=== PATIENT | female | born 1990 | race Caucasian/White ===

== ENCOUNTER 2016-08-09 20:39 | Emergency (ER) | payer OTHER ==
[2016-08-09 21:07] VITALS: BP 134/76; PULSE 88; TEMP 98.3; BMI 24.3
[2016-08-09 23:09] LABS: URINE APPEARANCE CLOUDY; URINE BILIRUBIN NEGATIVE (NEGATIVE); URINE COLOR YELLOW; URINE GLUCOSE (UA) NEGATIVE (NEGATIVE); URINE KETONE NEGATIVE (NEGATIVE); URINE NITRITE POSITIVE (NEGATIVE); URINE UROBILINOGEN NEGATIVE E.U./dl (0.2-1.0)
[2016-08-09 23:12] LABS: URINE BLOOD 2+ (NEGATIVE); URINE LEUK ESTERASE 3+ (NEGATIVE); URINE PROTEIN 2+ (NEGATIVE)
[2016-08-09 23:17] LABS: URINE BACTERIA RARE /hpf (NONE SEEN); URINE MUCUS RARE; URINE RBC 70 /hpf (0-3); URINE WBC 479 /hpf (3-5); YEAST MANY
--- NOTE | 2016-08-09 23:27 | PDOC ---
History of Present Illness - General History Source: Patient Exam Limitations: No Limitations - History of Present Illness Initial Comments: 08/10/16 01:44 The patient is a 26-year-old female with a significant past medical history of ovarian cysts and abnormal pap smears , who presents to the emergency department complaining of dysuria that began today. The patient reports left muscular flank pain. She denies frequency, urgency, or hematuria. The patient reports she took 3 tests one week ago, all which were positive. The patient denies any nausea, vomiting, diarrhea, or constipation. Allergies: NKDA Social History: No history of smoking, recreational drug use, or ETOH consumption <Karolyn Asif - Last Filed: 08/10/16 01:44> <Beverley Hassan - Last Filed: 08/10/16 04:36> - General Chief Complaint: Urinary Problem Stated Complaint: UTI/ABD PAIN Time Seen by Provider: 08/09/16 22:09 Past History <Karolyn Asif - Last Filed: 08/10/16 01:44> - Reproductive History (#): 0 - Psycho/Social/Smoking Cessation Hx Suicidal Ideation: No Smoking History: Never smoked Number of Cigarettes Smoked Daily: 0 Information on smoking cessation initiated: No Hx Alcohol Use: No Drug/Substance Use Hx: No <Beverley Hassan - Last Filed: 08/10/16 04:36> - Past Medical History Allergies/Adverse Reactions: Allergies Allergy/AdvReac Type Severity Reaction Status Date / Time No Known Allergies Allergy Verified 08/09/16 21:04 Home Medications: Ambulatory Orders Nitrofurantoin Monohyd/M-Cryst [Macrobid -] 100 mg PO BID #14 capsule 08/09/16 Review of Systems - Review of Systems Able to Perform ROS?: Yes Comments:: 08/10/16 01:44 GENERAL/CONSTITUTIONAL: No fever or chills. No weakness. HEAD, EYES, EARS, NOSE AND THROAT: No change in vision. No ear pain or discharge. No sore throat. CARDIOVASCULAR: No chest pain or shortness of breath. RESPIRATORY: No cough, wheezing, or hemoptysis. GASTROINTESTINAL: No nausea, vomiting, diarrhea or constipation. GENITOURINARY: +Dysuria. No frequency, or change in urination. MUSCULOSKELETAL: No joint or muscle swelling or pain. No neck or back pain. SKIN: No rash NEUROLOGIC: No headache, vertigo, loss of consciousness, or change in strength/ sensation. ENDOCRINE: No increased thirst. No abnormal weight change. HEMATOLOGIC/LYMPHATIC: No anemia, easy bleeding, or history of blood clots. ALLERGIC/IMMUNOLOGIC: No hives or skin allergy. <Karolyn Asif - Last Filed: 08/10/16 01:44> *Physical Exam - Vital Signs Last Vital Signs Temp Pulse Resp BP Pulse Ox 98.3 F 88 12 134/76 100 08/09/16 21:05 08/09/16 21:05 08/09/16 21:05 08/09/16 21:05 08/09/16 21:05 - Physical Exam Comments: 08/10/16 01:44 GENERAL: The patient is awake, alert, and fully oriented, in no acute distress. HEAD: Normal with no signs of trauma. EYES: Pupils equal, round and reactive to light, extraoccular movements intact, sclera anicteric, conjunctiva clear with no pallor. ENT: Ears normal, nares patent, oropharynx clear without exudates. Moist mucous membranes. NECK: Normal range of motion, supple without lymphadenopathy, JVD, or masses. LUNGS: Breath sounds equal, clear to auscultation bilaterally. No wheeze/ crackles. HEART: Regular rate and rhythm, normal S1 and S2 without murmur or rub. ABDOMEN: Soft/nontender/nondistended. BS wnl. No guarding or rebound. No palpable masses. No hepatosplenomegaly. EXTREMITIES: Normal range of motion, no edema. No clubbing or cyanosis. No cords, erythema, or tenderness. NEUROLOGICAL: Cranial nerves II through XII grossly intact. Normal speech, normal gait. PSYCH: Normal mood, normal affect. SKIN: Warm, Dry, normal turgor, no rashes or lesions noted. <Karolyn Asif - Last Filed: 08/10/16 01:44> - Vital Signs Last Vital Signs Temp Pulse Resp BP Pulse Ox 98.3 F 88 12 134/76 100 08/09/16 21:05 08/09/16 21:05 08/09/16 21:05 08/09/16 21:05 08/09/16 21:05 <Beverley Hassan - Last Filed: 08/10/16 04:36> ED Treatment Course - ADDITIONAL ORDERS Additional order review: Laboratory Results 08/09/16 22:49 Urine Color Yellow Urine Appearance Cloudy Urine pH 7.0 Ur Specific [place] 1.019 Urine Protein 2+ H Urine Glucose (UA) Negative Urine Ketones Negative Urine Blood 2+ H Urine Nitrite Positive Urine Bilirubin Negative Urine Urobilinogen Negative Ur Leukocyte Esterase 3+ H Urine RBC 70 Urine WBC 479 Ur Epithelial Cells Rare Urine Bacteria Rare Urine Mucus Rare Urine Yeast Many Urine HCG, Qual Positive - Medications Given in the ED: ED Medications Discontinued Medications Generic Name Dose Route Start Last Admin Trade Name Freq PRN Reason Stop Dose Admin Nitrofurantoin Macrocrystals 100 mg 08/09/16 23:30 08/09/16 23:37 Macrodantin - PO 100 mg ONCE MARY Administration <Karolyn Asif - Last Filed: 08/10/16 01:44> - ADDITIONAL ORDERS Additional order review: Laboratory Results 08/09/16 22:49 Urine Color Yellow Urine Appearance Cloudy Urine pH 7.0 Ur Specific [place] 1.019 Urine Protein 2+ H Urine Glucose (UA) Negative Urine Ketones Negative Urine Blood 2+ H Urine Nitrite Positive Urine Bilirubin Negative Urine Urobilinogen Negative Ur Leukocyte Esterase 3+ H Urine RBC 70 Urine WBC 479 Ur Epithelial Cells Rare Urine Bacteria Rare Urine Mucus Rare Urine Yeast Many Urine HCG, Qual Positive <Beverley Hassan - Last Filed: 08/10/16 04:36> Medical Decision Making - Medical Decision Making 08/10/16 04:34 Pt comes with UTI that she states she sometimes gets and she is aware of wht it feels like. 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 Pt indeed has a UTI and she is Urine HCG positive. She will be treated with macrobid. Her exm is normal. No suprapubic pain , flank pain, (only paraspinal muscle pain) no nausea and no vomiting.. She is afebrile. 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 <Beverley Hassan - Last Filed: 08/10/16 04:36> *DC/Admit/Observation/Transfer - Attestations Scribe Attestion: 08/10/16 01:45 Documentation prepared by Karolyn Asif, acting as medical record administrator for Beverley Hassan MD. <Karolyn Asif - Last Filed: 08/10/16 01:44> - Discharge Dispostion Admit: No <Beverley Hassan - Last Filed: 08/10/16 04:36> Diagnosis at time of Disposition: UTI (urinary tract infection) in in first trimester - Discharge Dispostion Disposition: HOME Condition at time of disposition: Stable - Prescriptions Prescriptions: Nitrofurantoin Monohyd/M-Cryst [Macrobid -] 100 mg PO BID #14 capsule - Referrals Referrals: Flaco Wong [Primary Care Provider] - Avery Platt MD [Staff Physician] - - Patient Instructions Printed Discharge Instructions: DI for Urinary Tract Infection (UTI) Print Language: TRISTANIAN
[2016-08-09] MEDS ORDERED: NITROFURANTOIN MACROCRYSTAL 50 MG CAPSULE (FP) PO SCH (23:30)
[2016-08-09] MEDS ORDERED: NITROFURANTOIN MACROCRYSTAL 50 MG CAPSULE (FP) ONE (23:34)
== END 2016-08-10 00:02 | disposition home or self-care (01) ==
LOC: JERFT 20:39 → JER 20:39
DX: O23.41 Unspecified infection of urinary tract in pregnancy, first trimester (principal); Z3A.00 Weeks of gestation of pregnancy not specified
CPT/HCPCS: 81003; 81015; 84703; 87086; 87186; 99282-25

== ENCOUNTER 2016-12-16 11:22 | Emergency (ER) | payer OTHER ==
[2016-12-16 11:28] VITALS: TEMP 98; BMI 26.9
--- NOTE | 2016-12-16 12:16 | PDOC ---
History of Present Illness - General History Source: Patient Exam Limitations: No Limitations - History of Present Illness Initial Comments: 12/16/16 13:44 The patient is a 26 year old female, 24 weeks (on pills), with a significant past medical history of cysts, who presents to the ER with shortness of breath, heart palpitations, and chest tightness for one week. Patient states she also has had abdominal cramping for the last two days accompanied with vaginal spotting. Patient reports this is her first . She says she believes she has issues with her thyroid because her menarche was at the age of 19. She denies nausea, vomiting, diarrhea She denies caffeine use She denies lower extremity pain, calf tenderness, or edema PCP: Dr. Pacheco <Rachel Fierro - Last Filed: 12/16/16 13:44> - General History Source: Patient, Old Records Exam Limitations: No Limitations <Lamar Guadalupe - Last Filed: 12/16/16 15:06> - General Chief Complaint: Palpitations Stated Complaint: HEART PALPITATIONS, 24 WKS Time Seen by Provider: 12/16/16 12:16 Past History <Rachel Fierro - Last Filed: 12/16/16 13:44> - Past Medical History Other medical history: denies - Reproductive History (#): 0 - Psycho/Social/Smoking Cessation Hx Suicidal Ideation: No Smoking History: Never smoked Number of Cigarettes Smoked Daily: 0 Information on smoking cessation initiated: No Hx Alcohol Use: No Drug/Substance Use Hx: No Substance Use Type: None <Lamar Guadalupe - Last Filed: 12/16/16 15:06> - Past Medical History Allergies/Adverse Reactions: Allergies Allergy/AdvReac Type Severity Reaction Status Date / Time No Known Allergies Allergy Verified 12/16/16 11:27 Home Medications: Ambulatory Orders Cephalexin [Keflex] 500 mg PO BID #10 capsule 12/16/16 Vits #93/Iron Fum/FA [ Formula Tablet] 1 each PO DAILY Review of Systems - Review of Systems Able to Perform ROS?: Yes Comments:: 12/16/16 13:44 GENERAL/CONSTITUTIONAL: No fever or chills. No weakness. HEAD, EYES, EARS, NOSE AND THROAT: No change in vision. No ear pain or discharge. No sore throat. CARDIOVASCULAR: (+) shortness of breath (+) chest heaviness. No chest pain. RESPIRATORY: No cough, wheezing, or hemoptysis. GASTROINTESTINAL: (+) abdominal cramping. No nausea, vomiting, diarrhea or constipation. GENITOURINARY: No dysuria, frequency, or change in urination. VAGINAL: (+) vaginal spotting MUSCULOSKELETAL: No joint or muscle swelling or pain. No neck or back pain. SKIN: No rash NEUROLOGIC: No headache, vertigo, loss of consciousness, or change in strength/ sensation. ENDOCRINE: No increased thirst. No abnormal weight change. HEMATOLOGIC/LYMPHATIC: No anemia, easy bleeding, or history of blood clots. ALLERGIC/IMMUNOLOGIC: No hives or skin allergy. <[facility],Rachel - Last Filed: 12/16/16 13:44> *Physical Exam - Vital Signs Last Vital Signs Temp Pulse Resp BP Pulse Ox 98 F 101 H 18 130/73 100 12/16/16 11:26 12/16/16 11:26 12/16/16 11:26 12/16/16 11:26 12/16/16 11:26 - Physical Exam Comments: 12/16/16 13:46 GENERAL: Awake, alert, and fully oriented, in no acute distress HEAD: No signs of trauma EYES: PERRLA, EOMI, sclera anicteric, conjunctiva clear ENT: Auricles normal inspection, hearing grossly normal, nares patent, oropharynx clear without exudates. Moist mucosa NECK: Normal ROM, supple, no lymphadenopathy, JVD, or masses LUNGS: Breath sounds equal, clear to auscultation bilaterally. No wheezes, and no crackles HEART: Regular rate and rhythm, normal S1 and S2, no murmurs, rubs or gallops ABDOMEN: Gravid uterus. Soft, nontender, normoactive bowel sounds. No guarding , no rebound. No masses EXTREMITIES: No calf tenderness, no peripheral ededma. Normal range of motion, no edema. No clubbing or cyanosis. No cords, erythema, or tenderness NEUROLOGICAL: Cranial nerves II through XII grossly intact. Normal speech, normal gait SKIN: Warm, Dry, normal turgor, no rashes or lesions noted. <[facility],Rachel - Last Filed: 12/16/16 13:44> - Vital Signs Last Vital Signs Temp Pulse Resp BP Pulse Ox 98 F 101 H 18 130/73 100 12/16/16 11:26 12/16/16 11:26 12/16/16 11:26 12/16/16 11:26 12/16/16 11:26 <Lamar Guadalupe - Last Filed: 12/16/16 15:06> ED Treatment Course - LABORATORY CBC & Chemistry Diagram: 12/16/16 13:00 12/16/16 13:00 <Rachel Fierro - Last Filed: 12/16/16 13:44> - LABORATORY CBC & Chemistry Diagram: 12/16/16 13:00 12/16/16 13:00 <Lamar Guadalupe - Last Filed: 12/16/16 15:06> Medical Decision Making - Medical Decision Making 12/16/16 13:11 26-year-old 6 month female 1 para 0 presents to the emergency Department with complaints of intermittent palpitations for the past 3 days with an episode of chest pain yesterday; of note, the patient had vaginal spotting yesterday but has had no spotting since and denies abdominal pain. Focused bedside ultrasound reveals an IUP with positive heart rate of 160. DDx includes but is not limited to: thyoid disease, cardiac arrhythmia, electrolyte abnormality, dehydration, toxic/metabolic derangement. Plan: 1. Labs and urine 2. EKG 3. HOUSEKEEPING MANAGER discussion 4. Observe and reevaluate 12/16/16 15:03 The labs were reviewed and are noted in the EMR. The urine has positive leukoesterase and the white blood cell count is elevated to 18,000. The patient is afebrile and is nontoxic appearing. I've spoken to the patient's obstetrical officethe PA named Rissayen I have informed her of the lab results. The plan is to discharge the patient on Keflex 500 mg twice daily for her UTI. We will send a urine culture from the office. I have instructed the patient to go to her crystal lapper's office immediately following discharge from here. <Lamar Guadalupe - Last Filed: 12/16/16 15:06> *DC/Admit/Observation/Transfer - Attestations Scribe Attestion: 12/16/16 13:49 Documentation prepared by Rachel Fierro, acting as medical/surgery registered nurse for Lamar Guadalupe MD. <SriRachel - Last Filed: 12/16/16 13:44> - Discharge Dispostion Admit: No - Attestations Physician Attestion: 12/16/16 13:14 I, Dr. Lamar Guadalupe, attest that the scribes documentation that appears above has been prepared under my direction and personally reviewed by me in its entirety. I confirmed that the note above accurately reflects all work, treatment, procedures, and medical decision-making performed by me. <Lamar Guadalupe - Last Filed: 12/16/16 15:06> Diagnosis at time of Disposition: Palpitations, , incidental, UTI (urinary tract infection) - Discharge Dispostion Condition at time of disposition: Stable - Prescriptions Prescriptions: Cephalexin [Keflex] 500 mg PO BID #10 capsule - Referrals Referrals: Flaco Wong [Primary Care Provider] - - Patient Instructions Printed Discharge Instructions: DI for Urinary Tract Infection (UTI) Additional Instructions: You are being treated for a urinary tract infection with Keflextake 1 tablet twice daily for 5 days. Please go to your crystal lapper's office immediately following discharge from the ER today. Return to the ER if your symptoms persist , worsen, or new symptoms arise. - Post Discharge Activity Work/School Note: Back to Work
[2016-12-16 13:48] LABS: BASOPHIL 0.2 % (0-2.0); EOSINOPHIL 1.2 % (0-4.5); MCH 30.9 pg (25.7-33.7); MCHC 33.5 g/dl (32.0-36.0); MEAN CELL VOLUME 92.4 fl (80-96); MEAN PLT VOLUME 6.8 fl (7.5-11.1); NEUTROPHILS 82.6 % (42.8-82.8); PLATELET COUNT 313 K/MM3 (134-434); RDW 13.1 % (11.6-15.6); WHITE BLOOD COUNT 18.3 K/mm3 (4.0-10.0)
[2016-12-16 14:10] LABS: URINE APPEARANCE CLOUDY; URINE BILIRUBIN NEGATIVE (NEGATIVE); URINE BLOOD NEGATIVE (NEGATIVE); URINE COLOR YELLOW; URINE GLUCOSE (UA) 1+ (NEGATIVE); URINE KETONE NEGATIVE (NEGATIVE); URINE NITRITE NEGATIVE (NEGATIVE); URINE PROTEIN NEGATIVE (NEGATIVE); URINE UROBILINOGEN NEGATIVE E.U./dl (0.2-1.0)
[2016-12-16 14:12] LABS: ANION GAP 11 (8-16); CALCIUM 8.8 mg/dL (8.5-10.1); CO2 24 mmol/L (21-32); CREATININE 0.5 mg/dL (0.55-1.02); GLUCOSE,RANDOM 86 mg/dL (74-106); PHOSPHOROUS 3.9 mg/dL (2.5-4.9)
[2016-12-16 14:14] LABS: TROPONIN I < 0.02 ng/ml (0.00-0.05)
[2016-12-16 14:34] LABS: URINE LEUK ESTERASE 1+ (NEGATIVE)
[2016-12-16] MEDS ORDERED: CEPHALEXIN MONOHYDRATE 500 MG CAPSULE (UD) PO ONE (14:40)
[2016-12-16] MEDS ORDERED: NITROFURANTOIN MACROCRYSTAL 50 MG CAPSULE (FP) PO SCH (14:45)
[2016-12-16] MEDS ORDERED: CEPHALEXIN MONOHYDRATE 250 MG CAPSULE (FP) ONE (14:55)
[2016-12-16 14:56] LABS: URINE MUCUS FEW; URINE RBC 20 /hpf (0-3); URINE WBC 10 /hpf (3-5)
[2016-12-16 15:19] VITALS: BP 129/76; PULSE 90
--- NOTE | 2016-12-17 17:13 | EKG ---
Test Reason : Blood Pressure : / mmHG Vent. Rate : 097 BPM Atrial Rate : 097 BPM P-R Int : 144 ms QRS Dur : 068 ms QT Int : 348 ms P-R-T Axes : 037 030 020 degrees QTc Int : 441 ms NORMAL SINUS RHYTHM LOW VOLTAGE QRS BORDERLINE ECG NO PREVIOUS ECGS AVAILABLE Confirmed by DAYNE RYAN MD ([id number]) on 12/17/2016 5:13:42 PM Referred By: Confirmed By:DAYNE RYAN MD
== END 2016-12-16 15:19 | disposition home or self-care (01) ==
LOC: JER 11:22
DX: O23.42 Unspecified infection of urinary tract in pregnancy, second trimester (principal); O99.412 Diseases of the circulatory system complicating pregnancy, second trimester; I49.8 Other specified cardiac arrhythmias; R00.2 Palpitations; Z3A.24 24 weeks gestation of pregnancy
CPT/HCPCS: 36415; 80048; 81003; 81015; 82550; 83735; 84100; 84443; 84484; 84703; 85025; 93005; 93010; 99284-25

== ENCOUNTER 2017-04-08 17:51 | Inpatient (IN) | payer OTHER ==
--- NOTE | 2017-04-08 19:07 | PDOC ---
History of Present Illness - General Chief Complaint: Allergic Reaction Stated Complaint: 40 WKS /ALLERGIC REACTION Time Seen by Provider: 04/08/17 18:07 History Source: Patient Exam Limitations: No Limitations - History of Present Illness Initial Comments: 04/08/17 19:02 Administration was initially triaged to fast-track patient presents with a rash , macular pruritic rash consistent with PUPPP rash, rash initially started on abdominal stretch sutton and has now progressed to legs. Called Dr. Pacheco who patient states is her primary [employer] doctor on-call states that Dr. Pacheco does not have privileges at this facility would not accept our phone call. Spoke to Dr. Smith who said to send patient immediately to labor and delivery where she will be evaluated and labs will be drawn. Baby needs to be assessed, patient sent via wheelchair immediately to labor and delivery for assessment. Administration states that she does have movement, no vaginal discharge or bleeding. Did have a mucousy discharge while going to the bathroom 2 days ago. 04/08/17 19:07 04/08/17 19:08 Severity: Yes: moderate Location: reports: other (origin abdominal stretch sutton and generalized. ) Modifying Factors: improves with: scratching Associated Symptoms: reports: rash Past History - Past Medical History Allergies/Adverse Reactions: Allergies Allergy/AdvReac Type Severity Reaction Status Date / Time No Known Allergies Allergy Verified 04/08/17 17:55 Home Medications: Ambulatory Orders Vits #93/Iron Fum/FA [ Formula Tablet] 1 each PO DAILY Other medical history: DENIES - Reproductive History (#): 0 Para: 0 - Psycho/Social/Smoking Cessation Hx Suicidal Ideation: No Smoking History: Never smoked Number of Cigarettes Smoked Daily: 0 Information on smoking cessation initiated: No Hx Alcohol Use: No Drug/Substance Use Hx: No Substance Use Type: None Review of Systems - Review of Systems Constitutional: No: Symptoms Reported HEENTM: No: Symptoms Reported Respiratory: No: Symptoms reported Cardiac (ROS): No: Symptoms Reported ABD/GI: No: Symptoms Reported : No: Symptoms Reported, Discharge, Frequency, Flank Pain, Hematuria Integumentary: Yes: Rash Hematologic/Lymphatic: No: Symptoms Reported *Physical Exam - Vital Signs Last Vital Signs Temp Pulse Resp BP Pulse Ox 98.6 F 110 H 18 146/89 100 04/08/17 17:53 04/08/17 17:53 04/08/17 17:53 04/08/17 17:53 04/08/17 17:53 - Physical Exam General Appearance: Yes: Appropriately Dressed. No: Apparent Distress Respiratory/Chest: positive: Lungs Clear, Normal Breath Sounds Cardiovascular: positive: Regular Rhythm, Regular Rate Lymphatic: negative: Adenopathy Extremity: positive: Pedal Edema (bilateral lower extremity nonpitting pedal edema), Erythema Integumentary: positive: Erythema, Rash (macular rash originating on stretch sutton to abdomen, macular rash generalized with no bullae) Neurologic: positive: Alert, Normal Mood/Affect Medical Decision Making - Medical Decision Making 04/08/17 19:12 Administration was initially triaged to fast-track patient presents with a rash , macular pruritic rash consistent with PUPPP rash, rash initially started on abdominal stretch sutton and has now progressed to legs. Called Dr. Pacheco who patient states is her primary [employer] doctor on-call states that Dr. Pacheco does not have privileges at this facility would not accept our phone call. Spoke to Dr. Smith who said to send patient immediately to labor and delivery where she will be evaluated and labs will be drawn. Baby needs to be assessed, patient sent via wheelchair immediately to labor and delivery for assessment. Administration states that she does have movement, no vaginal discharge or bleeding. Did have a mucousy discharge while going to the bathroom 2 days ago. Report given to labor and delivery, Vivian Yeh RN. *DC/Admit/Observation/Transfer Diagnosis at time of Disposition: Pruritic urticarial papules and plaques of
[2017-04-08] MEDS ORDERED: diphenhydrAMINE HCL 25 MG CAPSULE (FP) PO ONE (20:13)
[2017-04-08 20:36] LABS: BASOPHIL 0.2 % (0-2.0); EOSINOPHIL 2.4 % (0-4.5); MCH 31.4 pg (25.7-33.7); MCHC 33.8 g/dl (32.0-36.0); MEAN CELL VOLUME 93.1 fl (80-96); MEAN PLT VOLUME 7.8 fl (7.5-11.1); NEUTROPHILS 75.2 % (42.8-82.8); PLATELET COUNT 287 K/MM3 (134-434); WHITE BLOOD COUNT 11.7 K/mm3 (4.0-10.0)
[2017-04-08 20:41] LABS: URINE APPEARANCE CLEAR; URINE BILIRUBIN NEGATIVE (NEGATIVE); URINE BLOOD NEGATIVE (NEGATIVE); URINE COLOR STRAW; URINE GLUCOSE (UA) 3+ (NEGATIVE); URINE KETONE NEGATIVE (NEGATIVE); URINE LEUK ESTERASE NEGATIVE (NEGATIVE); URINE NITRITE NEGATIVE (NEGATIVE); URINE PROTEIN NEGATIVE (NEGATIVE); URINE UROBILINOGEN NEGATIVE mg/dL (0.2-1.0)
[2017-04-08 21:05] LABS: ALK PHOS 193 U/L (45-117); ANION GAP 10 (8-16); BILIRUBIN,TOTAL 0.2 mg/dL (0.2-1.0); CALCIUM 8.9 mg/dL (8.5-10.1); CO2 24 mmol/L (21-32); CREATININE 0.6 mg/dL (0.55-1.02); GLUCOSE,RANDOM 101 mg/dL (74-106); SGOT/AST 19 U/L (15-37); SGPT/ALT 24 U/L (12-78); SGPT/ALT 25 U/L (12-78); TOT PROT 6.3 g/dl (6.4-8.2)
[2017-04-08 21:06] LABS: ANION GAP 9 (8-16); BILIRUBIN,TOTAL 0.4 mg/dL (0.2-1.0); CO2 23 mmol/L (21-32); CREATININE 0.6 mg/dL (0.55-1.02); GLUCOSE,RANDOM 104 mg/dL (74-106); SGPT/ALT 24 U/L (12-78); TOT PROT 6.3 g/dl (6.4-8.2); URIC ACID 5.8 mg/dL (2.6-7.2)
[2017-04-08 21:11] LABS: ALK PHOS 188 U/L (45-117); SGOT/AST 18 U/L (15-37); SGOT/AST 19 U/L (15-37)
[2017-04-08] MEDS ORDERED: DEXTROSE 5%-LACTATED RINGERS 500 ML IV ONE ×2 (21:20→22:20)
[2017-04-08] MEDS: CALAMINE 8% TOPICAL LOTION 177 ML BOTTLE TP SCH (22:00)
[2017-04-08 23:17] VITALS: BMI 34.3
[2017-04-09 00:08] LABS: INR 1.03 (0.82-1.09); PROTHROMBIN TIME (PATIENT) 11.3 SEC (9.98-11.88)
[2017-04-09 00:10] LABS: ACTIVATED PTT 20.2 SECONDS (26.9-34.4)
[2017-04-09] MEDS: ELECTROLYTE-148 SOLN 1,000 ML IV SCH ×2 (00:30→05:20)
[2017-04-09 00:41] LABS: HIV 1 & 2 AB NEGATIVE; HIV 1 AGp24 NEGATIVE
[2017-04-09] MEDS ORDERED: FENTANYL/BUPIVACAINE/NS/PF - PCEA - 50 ML DISP.SYRIN EP SCH (02:30)
--- NOTE | 2017-04-09 02:39 | HP ---
Past Medical History - Primary Care Physician PCP:: Gabriella Smith - Admission Chief Complaint: 26 yrs 39.2 weeks iup, seen in L&D on 04/08/17 at 7.40 pm. c/o pruritis begnning on abdominal wall , radiating down to legs for few days , but felt worse before .pt was being worked up & monitored was having uterine irritablity, Iv fluid was begun, she had SROM at 22.40 hrs , & uc q 1-2 min continued in spite of Iv hydration , Fhr cat-1 ,150 bpm,at times low btb variablity.sono done 04/08/17 reprt 39.2 weeks, Vx, ant placenta, Bpp8/8, FAIZA 13.4 cm ,efw 8'2'. She was admitted & chart was requested History of Present Illness: care at Dr Pacheco's office chart reviewed :: intial labs on 08/13/16 : A Pos, Rubella immune, varicella immune, Hiv neg, rpr nr, Hbsag neg, Gc/ct neg Quantiferon neg, Cf neg, hepatic panel neg .GBS neg Nt screen neg. serial us growth were reviewed h/o hospitalization for Threatened PTL in january-2016, h/o steroids , 2 dose taken History Source: Patient, Medical Record Limitations to Obtaining History: No Limitations - Past Medical History CROWN PRESSER: No: CVA, Migraine, Seizure Cardiovascular: No: HTN Pulmonary: No: Asthma, COPD Gastrointestinal: No: Constipation, Gastritis Renal/: Yes: UTI (h/o uti in 1 st trimester) ...: 1 ...Para: 0 ...LMP: 07/07/16 ... Weeks Gestation by Dates: 39.2 ...EDC by Dates: 04/13/17 ...EDC by Sono: 04/13/17 Heme/Onc: No: Sickle Cell Trait Infectious Disease: No: AIDS, HIV, STD's, Tuberculosis Psych: No: Addictions, Bipolar, Depression - Past Surgical History Past Surgical History: Yes: None Hx Myomectomy: No Hx Transabdominal Cerclage: No - Smoking History Smoking history: Never smoked Have you smoked in the past 12 months: No Aproximately how many cigarettes per day: 0 - Alcohol/Substance Use Hx Alcohol Use: No History of Substance Use: reports: None Home Medications - Allergies Allergies/Adverse Reactions: Allergies Allergy/AdvReac Type Severity Reaction Status Date / Time No Known Allergies Allergy Verified 04/08/17 17:55 - Home Medications Home Medications: Ambulatory Orders Vits #93/Iron Fum/FA [ Formula Tablet] 1 each PO DAILY Physical Exam - Maternity Vital Signs: Vital Signs Temperature 99.4 F 04/09/17 01:00 Pulse Rate 123 H 04/09/17 01:00 Respiratory Rate 20 04/09/17 01:00 Blood Pressure 135/69 04/09/17 01:00 O2 Sat by Pulse Oximetry (%) 100 04/08/17 17:53 Selected Entries 04/08/17 04/08/17 20:00 22:40 Temperature 98.9 F 99.3 F Pulse Rate 103 H Pulse Rate [ 100 H Right Brachial] Blood Pressure 141/93 Blood Pressure 131/74 [Right Upper Arm] Weight 213 lb Constitutional: Yes: Well Nourished, Severe Distress Eyes: Yes: WNL HENT: Yes: WNL, Normocephalic Neck: Yes: WNL Cardiovascular: Yes: WNL, Regular Rate and Rhythm Lungs: Clear to auscultation Breast(s): Yes: WNL - Abdominal Exam/OB Fundal Height: 40 Number of Fetuses: Single Presentation: Vertex Contractions: Yes Regularity: Regular (2-3 min) Intensity: Mod/Strong Monitor Mode: External Heart Rate (range): 150-160 Heart Rate Location: Midline Category: II (loss of contact many times . sometimes BTB varablty very low 2-4 beats , sometimes it is 6-10 beats) Accelerations: Non-Uniform Decelerations: None (loss of contact many a times) - Vaginal Exam/OB Vaginal Bleediing: No Dilatation (cm): 5 Effacement (%): 100 Amniotic Membrane Status: Ruptured (at 22.40 hr on 04/08/17) Nitrazine Test: Positive Amniotic Fluid: Yes: Clear Presentation: Vertex/Position Station: -2 (-2/-1 , caput) - Physical Exam Musculoskeletal: Yes: WNL Extremities: Yes: WNL. No: Calf Tenderness Edema: Yes Edema: LLE: 1+, RLE: 1+ Integumentary: Yes: Erythema (on ant abd wall & inner ( medial aspect ) of lower extremities) Deep Tendon Reflex Grade: Normal +2 ...Motor Strength: WNL Psychiatric: Yes: WNL, Alert, Oriented - Labs Lab Results: Laboratory Tests 04/08/17 04/08/17 04/08/17 20:00 20:00 20:00 WBC Cancelled 11.7 Hgb Cancelled 13.9 MCH Cancelled 31.4 MCHC Cancelled 33.8 RDW Cancelled 14.0 Plt Count Cancelled 287retic 3.4 INR PTT (Actin FS) Chloride 109 H Carbon Dioxide 23 Anion Gap 9 Creatinine 0.6 Uric Acid 5.8 Total Bilirubin 0.4 GGT AST 18 D Urine Protein Negative Urine Glucose (UA) 3+ H D HIV 1&2 Antibody Screen HIV P24 Antigen 04/08/17 04/08/17 04/08/17 20:00 23:40 23:40 WBC Hgb MCH MCHC RDW Plt Count INR 1.03 PTT (Actin FS) 20.2 L Chloride Carbon Dioxide Anion Gap Creatinine Uric Acid Total Bilirubin GGT 18 AST Urine Protein Urine Glucose (UA) HIV 1&2 Antibody Screen Negative HIV P24 Antigen Negative Retic 3.4 Sodium 141, Potassium 4.0, Chlorides 109, CO2 23 , BUN 4,Creatinine 0.6, Glucose 104, SGOT/AST 18, SGPT/ALT 24, Bili total 0.4 , GGt-18 Problem List - Problems (1) with 39 completed weeks gestation Code(s): Z3A.39 - 39 WEEKS GESTATION OF (2) Pruritus of in third trimester Code(s): O99.713 - DISEASES OF THE SKIN, SUBCU COMP , THIRD TRIMESTER L29.9 - PRURITUS, UNSPECIFIED (3) SROM (spontaneous rupture of membranes) Code(s): HLO8173 - (4) Labor established Code(s): JYL8688 - (5) Obesity (BMI 30.0-34.9) Code(s): E66.9 - OBESITY, UNSPECIFIED Assessment/Plan 26 yrs , 39.2 weeks with priritis of , with srom, in sp labor onset & progress , GBSneg, HELLP work up neg Fhr cat-2, since progressing in labor will give trial of labor for vag delivery epidural labor analgesia at 2.40 am 04/09/17
--- NOTE | 2017-04-09 05:24 | PN ---
Progress Note, Labor Vaginal Exam #1 Labor Exam Date: 04/09/17 Labor Exam Time: 05:10 Heart Rate (range): 160-165 Dilatation: 7 Effacement (%): 100 Amniotic Membrane Status: Ruptured Presentation: Vertex/Position Station: 0 (caput) Remarks: fhr cat-2 ( btb low ) uc 2-3 min Selected Entries 04/09/17 04/09/17 04/09/17 03:55 04:00 05:00 Temperature 98.3 F 98.6 F Pulse Rate 117 H 119 117 Blood Pressure 127/74 134/76 101/67 6.00AM Temp 101.1 , Pulse 124/min , BP 108/52 FHR 170 bpm UC 2-3 min Plan IV Tylenol 1000 mg ivpb stat Iv Ancef 2 gm ivpb Vaginal Exam #2 Labor Exam Date: 04/09/17 Labor Exam Time: 07:00 Heart Rate (range): 160-170 Dilatation: 9 Effacement (%): 100 Amniotic Membrane Status: Ruptured Presentation: Vertex/Position Station: +1 (caput) Remarks: fhr cat-2 uc 1-2 min 7.)0 AM Temp 99 Vaginal Exam #3 Labor Exam Date: 04/09/17 Labor Exam Time: 08:10 Heart Rate (range): 170 Dilatation: 9 Effacement (%): 100 Amniotic Membrane Status: Ruptured Presentation: Vertex/Position Station: +1 Remarks: Temp 100 . I suspect Ac chorioamnionitis due to tachycardia , & maternal temp high fever 101 at 6.00 Am, now inspite of IVTylenol & IV Ancef 2gm given at 6.00am , she has Temp again at 8.10 AM 100. , tachycardia continues , no progress in labor beyond 9 cm hence I decided to stop trial of vaginal delivery , Deliver by Primary c/ section
[2017-04-09] MEDS: ACETAMINOPHEN 1000 MG/100 ML VIAL (NON FORMULARY) IVPB ONE ×2 (06:10→06:30)
[2017-04-09] MEDS ORDERED: ceFAZolin 2 GRAM PREMIX BAG IVPB ONE (06:30)
[2017-04-09] MEDS ORDERED: CITRIC ACID/SODIUM CITRATE 30 ML UNIT-DOSE CUP PO ONE (08:26)
[2017-04-09] MEDS ORDERED: METHYLERGONOVINE MALEATE 0.2 MG/1 ML AMP IM PRN (09:38)
[2017-04-09] MEDS ORDERED: ONDANSETRON 4 MG/2 ML VIAL IVPB PRN (09:42)
[2017-04-09] MEDS ORDERED: D5W-LR W/ 20 UNITS OXYTOCIN 1,000 ML IV SCH (09:45)
--- NOTE | 2017-04-09 10:05 | OP ---
Operative Note - Note: Operative Date: 04/09/17 Pre-Operative Diagnosis: 39.2 weeks, Ac Chorioamnionitis ( tachycardia , maternal fever), Non Reassuring FHR Operation: Primary LFTC/section Findings: 8.54 am .Baby boy, 5-7. Wt 9'3" , ROP, baby is transferred to NICU & intubated Both tubes normal , Both Ovaries large with multiple follicles amniotic fluid clear intraop IV gentamicin 80 mg after the delivery of fetus was given Dr Noemi Samano present in the OR IM Methergine was given due to atonicity of uterus Surgeon: Gabriella Smith Rotating Equipment Engineer: Rafael Butt Anesthesiologist/SLING OPERATOR: Wolf Byers Anesthesia: Epidural Specimens Removed: cord blood segment for cord gas. cord blood. placenta Estimated Blood Loss (mls): 1,200 Drains, Volume Out (mls): 400 (judit color ) Fluid Volume Replaced (mls): 1,200 Operative Report Dictated: Yes
--- NOTE | 2017-04-09 10:29 | PN ---
Delivery - Delivery Section: Primary, Low Flap Transverse (Iindication: 39.2 weeks, ac chorioamnionitis( Maternal fever, fetaltachycardia), Non reassuring FHR) Type of Anesthesia: Epidural EBL (cc): 1,200 (urine output 400 ml) Delivery, Single - Stages of Labor Date 1st Stage Initiatied: 04/08/17 Time 1st Stage Initiated: 22:00 Date of Delivery: 04/09/17 Time of Delivery: 08:54 Date Placenta Delivered: 04/09/17 Time Placenta Delivered: 08:55 Placenta: Yes: Manual Removal, Uterine Exploration - Condition of Infant Cutter And Presser/Medical Customer Service Representative Present: Yes Name: Noemi Samano Infant Gender: Male Position: Right, OP Total Hours ROM (Hrs/Mins): 10 hrs 15 min - 1 Minute Total Score: 5 5 Minutes Total Score: 7 (baby transferred to NICU, intubated ) - [place] Feeding Plan Initial Plan: Elected not to breastfeed exclusively throughout hospitalization Remarks - Remarks Remarks: 26 yrs , 39.2 weeks pnc at [facility]r [facility] office . presented with pruritis of HELLP work Up neg pt had SROM & went into spontaneous labor Intrapartum fever T max 101.1 rx iv Ancef 2 gm & IVtylenol was given Ac chorioamnionitis suspected . intraop cord blood gas was collected, but it was not picked up by respiratory for than > 1hr , hence it was not done since as per respiratory results won't be re;iable pt was taken for primary c/section intraop course was uneventful was transferred to [facility] in NICU
[2017-04-09] MEDS ORDERED: IBUPROFEN 800 MG/8 ML IJ IVPB PRN (11:14)
[2017-04-09] MEDS: GENTAMICIN 80 MG PREMIXED IVPB 100 ML IVPB SCH ×2 (11:14→17:17)
--- NOTE | 2017-04-09 12:20 | OP ---
DATE OF OPERATION: 04/09/2017 PREOPERATIVE DIAGNOSES: Thirty-nine point two weeks, acute chorioamnionitis, tachycardia, maternal fever, non-reassuring heart. OPERATION: Primary low-flap transverse section. SURGEON: Gabriella Smith MD PLANT CHANGER SURGEON: MATHEW Houston ANESTHESIOLOGIST: Wolf Byers MD ANESTHESIA: Epidural. FINDINGS: This is a 26-year-old, 1, para 0, 39.2 weeks, presented with pruritus with the , and she ruptured the membranes. While the workup was being done, the patient went into labor and she progressed with labor to 9 cm. As the heart rate was periodically alternatively low [id number] variability and then she developed tachycardia with a fever of 101 at 6 o'clock, IV Ancef and Tylenol was given, and her fever came down to 99. The heart rate was reaching 160 and back to 170 heart rate , Temp went back to 100 , therefore C- section was done. The patient remained dilated up to 9 cm. PROCEDURE: The patient was taken to the operating room table. Abdomen was shaved, prepped. Epidural Analgesia was converted into epidural anesthesia and a Farr catheter was already in place. The patient was in supine position. Abdomen was painted and draped in the usual manner. A Pfannenstiel incision was made in the skin and subcutaneous tissue. The anterior rectus sheath was incised transversely. Bleeding points were clamped and cauterized. Rectus muscles were from the rectus sheath. Parietal peritoneum was opened vertically. Lower flap of the peritoneum was incised transversely. Amniotic fluid was clear. The baby was delivered from ROP position at 8:54 a.m. was 5, 7, and the baby's weight was 9 pounds 3 ounces. The baby was transferred to the NICU and there the baby was intubated later on. The cord segment was collected for the cord blood gas and then cord blood was collected. Placenta was removed completely with the membranes and sent for pathology examination. The uterine cavity was cleaned properly. The uterine incision was closed in 2 layers. First layer was a continuous locking with a Biosyn 0 suture and the second layer was a continuous intermittent locking with a Biosyn 0 suture. Hemostasis was checked. The bladder peritoneum was closed with a Biosyn 0 suture. Both tubes were normal. Both ovaries were large with multiple follicles. Irrigation was done. .Uterine culture also was taken immediately after uterine incision . Then, closure of the abdomen was done. Sponge, instrument, and needle count was correct. Parietal peritoneum was closed with a Vicryl 0 suture. Muscles were approximated together with Vicryl 0 interrupted sutures and the anterior rectus sheath was closed with a Vicryl 0 continuous suture. Hemostasis was verified and subcutaneous tissue hemostasis was noted. The subcutaneous tissue was approximated with a Biosyn 0 suture. The skin was approximated with patricia. A pressure dressing was given. She had received 2 g of IV Ancef at 6 a.m. and she was given IV gentamicin 80 mg after the delivery of the baby. She received IM Methergine 0.2 mg intraoperatively, since the uterus was atonic. ESTIMATED BLOOD LOSS: 1200 mL. URINE OUTPUT: 400 mL intraoperatively and it was clear. The patient tolerated the procedure well and she was transferred to the recovery room in stable condition. Ann [id number] MTDD
[2017-04-09] MEDS: CEFAZOLIN 1 GM in DEXTROSE 5%-WATER - 50 ML IVPB SCH ×2 (13:29→21:13)
--- NOTE | 2017-04-09 14:54 | EKG ---
Test Reason : Blood Pressure : / mmHG Vent. Rate : 127 BPM Atrial Rate : 127 BPM P-R Int : 156 ms QRS Dur : 066 ms QT Int : 308 ms P-R-T Axes : 057 051 024 degrees QTc Int : 447 ms SINUS TACHYCARDIA OTHERWISE NORMAL ECG WHEN COMPARED WITH ECG OF 16-DEC-2016 11:33, NO SIGNIFICANT CHANGE WAS FOUND Confirmed by EUNICE ALBERT MD ([id number]) on 04/09/2017 2:54:00 PM Referred By: Maday FINN Confirmed By:EUNICE ALBERT MD
[2017-04-09] MEDS: CALAMINE 8% TOPICAL LOTION 177 ML BOTTLE TP SCH ×4 (16:22→21:00)
[2017-04-09] MEDS ORDERED: DEXTROSE 5%-WATER - 50 ML IVPB ONE (21:08)
[2017-04-09] MEDS ORDERED: ceFAZolin SODIUM 1 GM VIAL ONE (21:08)
[2017-04-10] MEDS: GENTAMICIN 80 MG PREMIXED IVPB 100 ML IVPB SCH ×3 (01:38→17:28)
[2017-04-10] MEDS: ACETAMINOPHEN 325 MG TABLET (FP) PO PRN ×3 (02:36→17:25)
[2017-04-10] MEDS: IBUPROFEN 600 MG TABLET (FP) PO PRN ×3 (02:36→17:25)
[2017-04-10] MEDS ORDERED: DEXTROSE 5%-WATER - 50 ML IVPB ONE ×3 (06:29→21:27)
[2017-04-10] MEDS ORDERED: ceFAZolin SODIUM 1 GM VIAL ONE ×3 (06:30→21:27)
[2017-04-10] MEDS: CEFAZOLIN 1 GM in DEXTROSE 5%-WATER - 50 ML IVPB SCH ×3 (06:32→21:39)
[2017-04-10] MEDS ORDERED: oxyCODONE HCL 5 MG TABLET PO PRN (08:00)
[2017-04-10 08:36] LABS: MCH 31.2 pg (25.7-33.7); MCHC 33.6 g/dl (32.0-36.0); MEAN CELL VOLUME 92.7 fl (80-96); MEAN PLT VOLUME 6.8 fl (7.5-11.1); PLATELET COUNT 247 K/MM3 (134-434); RDW 14.1 % (11.6-15.6); WHITE BLOOD COUNT 20.9 K/mm3 (4.0-10.0)
[2017-04-10 09:13] LABS: ALBUMIN 2.1 g/dl (3.4-5.0); ALK PHOS 123 U/L (45-117); ANION GAP 10 (8-16); BILIRUBIN,TOTAL 0.8 mg/dL (0.2-1.0); CALCIUM 8.3 mg/dL (8.5-10.1); CO2 23 mmol/L (21-32); CREATININE 0.5 mg/dL (0.55-1.02); GLUCOSE,RANDOM 87 mg/dL (74-106); SGOT/AST 18 U/L (15-37); SGPT/ALT 15 U/L (12-78); TOT PROT 4.6 g/dl (6.4-8.2)
[2017-04-10] MEDS: PRENATAL VITAMINS W/ FOLIC ACID TABLET (FP) PO SCH (09:14)
[2017-04-10 09:28] LABS: PLATELET ESTIMATE ADEQUATE (NORMAL); TOTAL CELLS COUNTED 100
[2017-04-10] MEDS ORDERED: BISACODYL 10 MG SUPP.RECT RC PRN (09:38)
--- NOTE | 2017-04-10 09:43 | PN ---
Post Progress Note - Subjective Subjective: 26 yo Para 1, status post primary , seen and evaluated. Doing well. Post Day: 1 Type of Delivery: Primary C/S Vital Signs: Vital Signs Temperature 99.2 F 04/10/17 08:36 Pulse Rate 107 H 04/10/17 08:36 Respiratory Rate 20 04/10/17 08:36 Blood Pressure 126/50 04/10/17 08:36 O2 Sat by Pulse Oximetry (%) 100 04/09/17 10:25 Breast Exam: Yes: Soft Uterus: Yes: Fundus Firm Incision: Yes: Dressing dry and intact Abdomen/GI: Yes: Abdomen soft Lochia: Yes: Rubra Lochia, amount: Small Extremities: Yes: Calves non-tender Perineum: Yes: Intact Activity: Ambulating - Labs Labs: CBC WBC 20.9 K/mm3 (4.0-10.0) H D 04/10/17 07:45 Corrected WBC (auto) Cancelled 04/08/17 20:00 RBC 3.50 M/mm3 (3.60-5.2) L D 04/10/17 07:45 Hgb 10.9 GM/dL (10.7-15.3) D 04/10/17 07:45 Hct 32.4 % (32.4-45.2) D 04/10/17 07:45 MCV 92.7 fl (80-96) 04/10/17 07:45 MCH 31.2 pg (25.7-33.7) 04/10/17 07:45 MCHC 33.6 g/dl (32.0-36.0) 04/10/17 07:45 RDW 14.1 % (11.6-15.6) 04/10/17 07:45 Plt Count 247 K/MM3 (134-434) 04/10/17 07:45 MPV 6.8 fl (7.5-11.1) L D 04/10/17 07:45 Total Counted 100 04/10/17 07:45 Neutrophils % Y 04/10/17 07:45 Neutrophils % (Manual) 77 % (42.8-82.8) 04/10/17 07:45 Band Neuts % (Manual) 2 % (0-10) 04/10/17 07:45 Lymphocytes % Y 04/10/17 07:45 Lymphocytes % (Manual) 10 % (8-40) 04/10/17 07:45 Monocytes % 8.2 % (3.8-10.2) 04/08/17 20:00 Monocytes % (Manual) 10 % (3.8-10.2) 04/10/17 07:45 Eosinophils % 2.4 % (0-4.5) D 04/08/17 20:00 Eosinophils % (Manual) 1 % (0-4.5) 04/10/17 07:45 Basophils % 0.2 % (0-2.0) 04/08/17 20:00 Platelet Estimate Adequate (NORMAL) 04/10/17 07:45 Platelet Comment No clumping noted 04/10/17 07:45 Platelet Comment Cancelled 04/08/17 20:00 RBC Morphology Cancelled 04/08/17 20:00 Retic Count 3.41 % (0.5-1.5) H 04/08/17 20:00 Haptoglobin 160 mg/dL (34-200) 04/08/17 20:00 Problem List - Problems (1) Status post primary low transverse section Code(s): Z98.891 - HISTORY OF UTERINE SCAR FROM PREVIOUS SURGERY Assessment/Plan Status post primary Ambulation Analgesia as needed Continue Post op care
[2017-04-10] MEDS: CALAMINE 8% TOPICAL LOTION 177 ML BOTTLE TP SCH ×4 (10:57→21:39)
--- NOTE | 2017-04-10 10:59 | PN ---
Progress Note (short form) - Note Progress Note: Anesthesiology Post-op POD#1 s/p C/S under spinal. Pt. feels well, denies h/a, able to walk, able to urinate without difficulty. VSS.
[2017-04-10] MEDS: SIMETHICONE 80 MG TAB.CHEW (FP) PO PRN ×2 (11:54→17:24)
[2017-04-10] MEDS: oxyCODONE HCL 5 MG TABLET PO PRN (17:24)
--- NOTE | 2017-04-10 18:39 | PN ---
Post Progress Note - Subjective Subjective: c/o pain scale 4-5 c/o pruritis still present,less than before delivery,more felt in the legs voided without difficulty after gomez was taken out Post Day: 1 Type of Delivery: Primary C/S Vital Signs: Vital Signs Temperature 98.2 F 04/10/17 17:46 Pulse Rate 110 H 04/10/17 17:46 Respiratory Rate 20 04/10/17 17:46 Blood Pressure 124/79 04/10/17 17:46 O2 Sat by Pulse Oximetry (%) 100 04/09/17 10:25 T Max 100 at 2.00AM Breast Exam: Yes: Other (pumping milk) Uterus: Yes: Fundus Firm, Fundus below umbilicus (tender) Incision: Yes: Dressing dry and intact. No: Redness, Oozing Abdomen/GI: Yes: Abdomen soft, Tender, Passing flatus, Tolerating PO (fluids n diet) Lochia, amount: Moderate (no odor) Extremities: Yes: Calves non-tender, Edema (erythema of lower extremities,) Perineum: Yes: Intact Activity: Ambulating - Labs Labs: CBC WBC 20.9 K/mm3 (4.0-10.0) H D 04/10/17 07:45 Corrected WBC (auto) Cancelled 04/08/17 20:00 RBC 3.50 M/mm3 (3.60-5.2) L D 04/10/17 07:45 Hgb 10.9 GM/dL (10.7-15.3) D 04/10/17 07:45 Hct 32.4 % (32.4-45.2) D 04/10/17 07:45 MCV 92.7 fl (80-96) 04/10/17 07:45 MCH 31.2 pg (25.7-33.7) 04/10/17 07:45 MCHC 33.6 g/dl (32.0-36.0) 04/10/17 07:45 RDW 14.1 % (11.6-15.6) 04/10/17 07:45 Plt Count 247 K/MM3 (134-434) 04/10/17 07:45 MPV 6.8 fl (7.5-11.1) L D 04/10/17 07:45 Total Counted 100 04/10/17 07:45 Neutrophils % Y 04/10/17 07:45 Neutrophils % (Manual) 77 % (42.8-82.8) 04/10/17 07:45 Band Neuts % (Manual) 2 % (0-10) 04/10/17 07:45 Lymphocytes % Y 04/10/17 07:45 Lymphocytes % (Manual) 10 % (8-40) 04/10/17 07:45 Monocytes % 8.2 % (3.8-10.2) 04/08/17 20:00 Monocytes % (Manual) 10 % (3.8-10.2) 04/10/17 07:45 Eosinophils % 2.4 % (0-4.5) D 04/08/17 20:00 Eosinophils % (Manual) 1 % (0-4.5) 04/10/17 07:45 Basophils % 0.2 % (0-2.0) 04/08/17 20:00 Platelet Estimate Adequate (NORMAL) 04/10/17 07:45 Platelet Comment No clumping noted 04/10/17 07:45 Platelet Comment Cancelled 04/08/17 20:00 RBC Morphology Cancelled 04/08/17 20:00 Retic Count 3.41 % (0.5-1.5) H 04/08/17 20:00 Haptoglobin 160 mg/dL (34-200) 04/08/17 20:00 Other Findings, Remarks: RS cta i/o noted. Problem List - Problems (1) with 39 completed weeks gestation Code(s): Z3A.39 - 39 WEEKS GESTATION OF (2) Pruritus of in third trimester Code(s): O99.713 - DISEASES OF THE SKIN, SUBCU COMP , THIRD TRIMESTER L29.9 - PRURITUS, UNSPECIFIED (3) SROM (spontaneous rupture of membranes) Code(s): PYN1518 - (4) Labor established Code(s): SQL3004 - (5) Obesity (BMI 30.0-34.9) Code(s): E66.9 - OBESITY, UNSPECIFIED Assessment/Plan stable encourage ambulation,deep breathing po fluids ct iv Ancef n iv Gentamicin until tomorrow pending cbc in AM
[2017-04-10] MEDS: FERROUS SO4 325 MG TABLET (FP) PO SCH (22:00)
[2017-04-11] MEDS: SIMETHICONE 80 MG TAB.CHEW (FP) PO PRN ×4 (01:37→18:03)
[2017-04-11] MEDS: ACETAMINOPHEN 325 MG TABLET (FP) PO PRN (01:37)
[2017-04-11] MEDS: GENTAMICIN 80 MG PREMIXED IVPB 100 ML IVPB SCH ×3 (01:42→18:03)
[2017-04-11] MEDS: SODIUM CHLORIDE 1,000 ML IV SCH (02:10)
--- NOTE | 2017-04-11 02:15 | CONSULT ---
Consultation: REQUESTING PROVIDER: Dr. Reyes CONSULT REQUEST: We have been asked to medically evaluate this patient for headache, tachycardia, and facial numbness. HISTORY OF PRESENT ILLNESS: 26 year old F POD 1 s/p delivery presenting with headache and facial numbness. Patient states she has been having constant headache x1 hour starting in her neck and radiating up to her frontal forehead. She describes the pain as tightness. Patient also complaining of shortness of breath and palpitations since yesterday. She underwent an EKG, which showed sinus tachycardia. Patient is post op day 1. Baby's scores were 5 & 7 and was transferred to NICU. Patient is currently being treated for chorioamionitis with cefaozlin and gentamicin. REVIEW OF SYSTEMS: CONSTITUTIONAL: Absent: fever, chills, diaphoresis, generalized weakness, malaise, loss of appetite, weight change HEENT: Absent: rhinorrhea, nasal congestion, throat pain, throat swelling, difficulty swallowing, mouth swelling, ear pain, eye pain, visual changes CARDIOVASCULAR: Absent: chest pain, syncope, palpitations, irregular heart rate, lightheadedness , peripheral edema RESPIRATORY: Absent: cough, shortness of breath, dyspnea with exertion, orthopnea, wheezing, stridor, hemoptysis GASTROINTESTINAL: Absent: abdominal pain, abdominal distension, nausea, vomiting, diarrhea, constipation, melena, hematochezia GENITOURINARY: Absent: dysuria, frequency, urgency, hesitancy, hematuria, flank pain, genital pain MUSCULOSKELETAL: Absent: myalgia, arthralgia, joint swelling, back pain, neck pain SKIN: Absent: rash, itching, pallor HEMATOLOGIC/IMMUNOLOGIC: Absent: easy bleeding, easy bruising, lymphadenopathy, frequent infections ENDOCRINE: Absent: unexplained weight gain, unexplained weight loss, heat intolerance, cold intolerance NEUROLOGIC: Absent: headache, focal weakness or paresthesias, dizziness, unsteady gait, seizure, mental status changes, bladder or bowel incontinence PSYCHIATRIC: Absent: anxiety, depression, suicidal or homicidal ideation, hallucinations. PHYSICAL EXAMINATION Vital Signs - 24 hr 04/10/17 04/10/17 04/10/17 03:00 04:00 05:00 Temperature Pulse Rate Respiratory 20 20 20 Rate Blood Pressure 04/10/17 04/10/17 04/10/17 06:00 07:00 08:00 Temperature 98.2 F Pulse Rate 118 H Respiratory 20 20 20 Rate Blood Pressure 117/68 04/10/17 04/10/17 04/10/17 08:36 14:00 17:46 Temperature 99.2 F 97.9 F 98.2 F Pulse Rate 107 H 114 H 110 H Respiratory 20 18 20 Rate Blood Pressure 126/50 112/61 124/79 04/10/17 20:45 Temperature 98.0 F Pulse Rate 114 H Respiratory 20 Rate Blood Pressure 117/62 GENERAL: Awake, alert, and fully oriented, in no acute distress. HEAD: Normal with no signs of trauma. EYES: Pupils equal, round and reactive to light, extraocular movements intact, sclera anicteric, conjunctiva clear. No lid lag. EARS, NOSE, THROAT: Ears normal, nares patent, oropharynx clear without exudates. Moist mucous membranes. NECK: Normal range of motion, supple without lymphadenopathy, JVD, or masses. LUNGS: Breath sounds equal, clear to auscultation bilaterally. No wheezes, and no crackles. No accessory muscle use. HEART: Tachycardic, Regular rhythm, normal S1 and S2 without murmur, rub or gallop. ABDOMEN: Soft, +tenderness, +Distention, normoactive bowel sounds, no guarding, no rebound, no masses. No hepatomegaly or splenomegaly. MUSCULOSKELETAL: Normal range of motion at all joints. No bony deformities or tenderness. UPPER EXTREMITIES: 2+ pulses, warm, well-perfused. No cyanosis. No clubbing. Cap refill <2 seconds. No peripheral edema. LOWER EXTREMITIES: 2+ pulses, warm, well-perfused. No calf tenderness. No peripheral edema. NEUROLOGICAL: Cranial nerves II-XII intact. 5/5 strength in UE, 4/5 strenght in LE 2/2 to pain from surgery, sensation intact b/l PSYCHIATRIC: Cooperative. Good eye contact. Appropriate mood and affect. Laboratory Results - last 24 hr 04/10/17 04/10/17 07:45 07:45 WBC 20.9 H D RBC 3.50 L D Hgb 10.9 D Hct 32.4 D MCV 92.7 MCH 31.2 MCHC 33.6 RDW 14.1 Plt Count 247 MPV 6.8 L D Total Counted 100 Neutrophils % Y Neutrophils % (Manual) 77 Band Neuts % (Manual) 2 Lymphocytes % Y Lymphocytes % (Manual) 10 Monocytes % (Manual) 10 Eosinophils % (Manual) 1 Platelet Estimate Adequate Platelet Comment No clumping noted Sodium 138 Potassium 3.5 Chloride 105 Carbon Dioxide 23 Anion Gap 10 BUN 4 L D Creatinine 0.5 L Creat Clearance w eGFR > 60 Random Glucose 87 Calcium 8.3 L Total Bilirubin 0.8 D AST 18 ALT 15 D Alkaline Phosphatase 123 H D Total Protein 4.6 L D Albumin 2.1 L D Active Medications Generic Name Dose Route Start Last Admin Trade Name Freq PRN Reason Stop Dose Admin Acetaminophen 650 mg 04/09/17 09:42 04/11/17 01:37 Tylenol - PO 650 mg Q4H PRN Administration FEVER OR PAIN Bisacodyl 10 mg 04/10/17 09:38 Dulcolax Suppository - RC PRN PRN CONSTIPATION Calamine 1 applic 04/08/17 22:00 04/10/17 21:39 Calamine 8% Topical Lotion - TP 1 applic QID MARY Administration Diphenhydramine HCl 25 mg 04/09/17 09:42 04/10/17 02:36 Benadryl Injection - IVPUSH 25 mg Q4H PRN Administration Pruritis Ferrous Sulfate 325 mg 04/10/17 22:00 04/10/17 22:00 Feosol - PO 325 mg BID MARY Administration Cefazolin Sodium 1 gm/ 50 mls @ 100 mls/hr 04/09/17 14:00 04/10/17 21:39 Dextrose IVPB 100 mls/hr Q8H MARY Administration Dextrose/Lactated Ringer's 1,000 mls @ 125 mls/hr 04/09/17 09:45 04/10/17 08:18 Pitocin 20 Units In D5-Lr - IV 125 mls/hr ASDIR MARY Administration Gentamicin Sulfate/Sodium Chloride 100 mls @ 100 mls/hr 04/09/17 10:00 01:42 Garamycin 80 Mg Premixed Ivpb - IVPB 100 mls/hr Q8H-IV MARY Administration Ibuprofen 600 mg 04/09/17 09:42 04/10/17 17:25 Motrin - PO 600 mg Q4H PRN Administration PAIN Methylergonovine Maleate 0.2 mg 04/09/17 09:38 04/09/17 21:32 Methergine Injection - IM 0.2 mg Q4H PRN Administration Excessive Bleeding (L&D) Oxycodone HCl 5 mg 04/10/17 08:00 04/10/17 17:24 Roxicodone - PO 5 mg Q4H PRN Administration PAIN LEVEL 1-5 Oxycodone HCl 10 mg 04/10/17 08:00 Roxicodone - PO Q4H PRN PAIN LEVEL 6-10 Multivit/Folic Acid/Iron 1 tab 04/10/17 10:00 04/10/17 09:14 Vitamins (Sjr) - PO 1 tab DAILY MARY Administration Simethicone 80 mg 04/09/17 09:38 04/11/17 01:37 Mylicon - PO 80 mg Q4H PRN Administration GAS ASSESSMENT/PLAN: 26 year old F POD 1 s/p presenting with headache, tachycardia, palpitations, and SOB #Dyspnea and Tachycardia likely 2/2 to pain vs anxiety -Satting 100 on RA -no tachypnea -Cxr -tylenol 650 mg po -EKG #Headache -Tylenol 650 mg po #Palpitations -Repeat EKG #Chorioamnionitis -Continue ancef and gentamicin Dispo: We will continue to follow the patient. Thank you for this consultative opportunity. Visit type - Emergency Visit Emergency Visit: Yes ED Registration Date: 04/08/17 Care time: The patient presented to the Emergency Department on the above date and was hospitalized for further evaluation of their emergent condition. - New Patient This patient is new to me today: Yes Date on this admission: 04/11/17 - Critical Care Critical Care patient: No
[2017-04-11] MEDS ORDERED: DEXTROSE 5%-WATER - 50 ML IVPB ONE ×3 (06:11→22:52)
[2017-04-11] MEDS ORDERED: ceFAZolin SODIUM 1 GM VIAL ONE ×3 (06:11→22:52)
[2017-04-11] MEDS: CEFAZOLIN 1 GM in DEXTROSE 5%-WATER - 50 ML IVPB SCH ×3 (06:31→23:06)
--- NOTE | 2017-04-11 06:36 | PN ---
Teaching Attending Note Name of Resident: Jeremiah Ko ATTENDING PHYSICIAN STATEMENT I saw and evaluated the patient. I reviewed the resident's note and discussed the case with the resident. I agree with the resident's findings and plan as documented. SUBJECTIVE: 26 year old POD # 1 after c section c/o posterior occipital headache and facial numbness,shortness of breath and palpitations since yesterday. Patient is currently being treated for chorioamionitis with cefaozlin and gentamicin. OBJECTIVE: Vital Signs Temperature 98.2 F 04/11/17 06:32 Pulse Rate 116 H 04/11/17 06:32 Respiratory Rate 20 04/11/17 06:32 Blood Pressure 129/79 04/11/17 06:32 O2 Sat by Pulse Oximetry (%) 100 04/09/17 10:25 NECK: Normal range of motion, supple without lymphadenopathy, JVD, or masses. LUNGS: Breath sounds equal, clear to auscultation bilaterally. No wheezes, and no crackles. No accessory muscle use. HEART: Tachycardic, Regular rhythm, normal S1 and S2 without murmur, rub or gallop. pedal edema 1 + CBC, BMP 04/10/17 07:45 04/10/17 07:45 ASSESSMENT AND PLAN: 1. Dyspnea - good o2 saturation , likely secondary to pain and splinting . Needs good pain control and incentive spirometry. will order CXR and follow 2. Headache , posterior occipital - likely tension , no neurological deficit . 3. 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
[2017-04-11] MEDS: oxyCODONE HCL 5 MG TABLET PO PRN ×3 (06:43→18:01)
[2017-04-11] MEDS: IBUPROFEN 600 MG TABLET (FP) PO PRN ×3 (06:44→18:02)
[2017-04-11 07:26] LABS: BASOPHIL 0.2 % (0-2.0); MCH 31.3 pg (25.7-33.7); MCHC 33.3 g/dl (32.0-36.0); MEAN CELL VOLUME 94.2 fl (80-96); NEUTROPHILS 79.5 % (42.8-82.8); PLATELET COUNT 280 K/MM3 (134-434); RDW 14.2 % (11.6-15.6)
--- NOTE | 2017-04-11 08:26 | PN ---
Progress Note (short form) - Note Progress Note: pod 2 had c/o of face numbness and tingling finger tips, seen by Hospitalist, feels fine now CBC, BMP 04/11/17 05:35 04/10/17 07:45 Last Vital Signs Temp Pulse Resp BP Pulse Ox 98.2 F 116 H 20 129/79 100 04/11/17 06:32 04/11/17 06:32 04/11/17 06:32 04/11/17 06:32 04/09/17 10:25 abdomen soft, no distension, no cva incision dry, clean no calf tenderness no excess vaginal bleeding impression pod 2 tachycardia, suspected chorio, cont iv antibiotic , observation, medical evaluation
[2017-04-11] MEDS: FERROUS SO4 325 MG TABLET (FP) PO SCH ×2 (10:24→23:07)
[2017-04-11] MEDS: PRENATAL VITAMINS W/ FOLIC ACID TABLET (FP) PO SCH (10:24)
[2017-04-11] MEDS: CALAMINE 8% TOPICAL LOTION 177 ML BOTTLE TP SCH ×4 (10:30→23:07)
--- NOTE | 2017-04-11 11:15 | PN ---
Post Progress Note - Subjective Subjective: c/o pain , scale 7/10 c/o gaseous discomfort , pain is moving , bm not done . no longer c/o occipital headache or palpitation or nubness of fingers \voiding without difficulty Type of Delivery: Primary C/S Vital Signs: Vital Signs Temperature 98.0 F 04/11/17 09:30 Pulse Rate 116 H 04/11/17 09:30 Respiratory Rate 20 04/11/17 09:30 Blood Pressure 124/81 04/11/17 09:30 O2 Sat by Pulse Oximetry (%) 98 04/11/17 09:30 Breast Exam: Yes: Soft, Other (attempting pumping ). No: Engorged Uterus: Yes: Fundus Firm, Fundus below umbilicus (tender ), Other Incision: Yes: Dressing dry and intact (to be changed ). No: Redness, Oozing Abdomen/GI: Yes: Abdomen soft, Tender (mainly in rt middle quadrant ,), Passing flatus, Tolerating PO (diet ). No: Abdominal Distention Lochia: Yes: Rubra Lochia, amount: Small (no odor) Activity: Ambulating - Labs Labs: CBC WBC 18.0 K/mm3 (4.0-10.0) H 04/11/17 05:35 Corrected WBC (auto) Cancelled 04/08/17 20:00 RBC 3.34 M/mm3 (3.60-5.2) L 04/11/17 05:35 Hgb 10.5 GM/dL (10.7-15.3) L 04/11/17 05:35 Hct 31.5 % (32.4-45.2) L 04/11/17 05:35 MCV 94.2 fl (80-96) 04/11/17 05:35 MCH 31.3 pg (25.7-33.7) 04/11/17 05:35 MCHC 33.3 g/dl (32.0-36.0) 04/11/17 05:35 RDW 14.2 % (11.6-15.6) 04/11/17 05:35 Plt Count 280 K/MM3 (134-434) 04/11/17 05:35 MPV 7.0 fl (7.5-11.1) L 04/11/17 05:35 Total Counted 100 04/10/17 07:45 Neutrophils % 79.5 % (42.8-82.8) 04/11/17 05:35 Neutrophils % (Manual) 77 % (42.8-82.8) 04/10/17 07:45 Band Neuts % (Manual) 2 % (0-10) 04/10/17 07:45 Lymphocytes % 11.3 % (8-40) 04/11/17 05:35 Lymphocytes % (Manual) 10 % (8-40) 04/10/17 07:45 Monocytes % 7.0 % (3.8-10.2) 04/11/17 05:35 Monocytes % (Manual) 10 % (3.8-10.2) 04/10/17 07:45 Eosinophils % 2.0 % (0-4.5) 04/11/17 05:35 Eosinophils % (Manual) 1 % (0-4.5) 04/10/17 07:45 Basophils % 0.2 % (0-2.0) 04/11/17 05:35 Platelet Estimate Adequate (NORMAL) 04/10/17 07:45 Platelet Comment No clumping noted 04/10/17 07:45 Platelet Comment Cancelled 04/08/17 20:00 RBC Morphology Cancelled 04/08/17 20:00 Retic Count 3.41 % (0.5-1.5) H 04/08/17 20:00 Haptoglobin 160 mg/dL (34-200) 04/08/17 20:00 Other Findings, Remarks: RS cta Problem List - Problems (1) with 39 completed weeks gestation Code(s): Z3A.39 - 39 WEEKS GESTATION OF (2) Pruritus of in third trimester Code(s): O99.713 - DISEASES OF THE SKIN, SUBCU COMP , THIRD TRIMESTER L29.9 - PRURITUS, UNSPECIFIED (3) SROM (spontaneous rupture of membranes) Code(s): VDS0284 - (4) Labor established Code(s): TAP6214 - (5) Obesity (BMI 30.0-34.9) Code(s): E66.9 - OBESITY, UNSPECIFIED (6) Non-reassuring electronic monitoring tracing Code(s): O76 - ABNLT IN HEART RATE AND RHYTHM COMP LABOR AND DELIVERY (7) Maternal pyrexia during labor, delivered, current hospitalization Code(s): O75.2 - PYREXIA DURING LABOR, NOT ELSEWHERE CLASSIFIED (8) Acute chorioamnionitis Code(s): O41.1290 - CHORIOAMNIONITIS, UNSP TRIMESTER, NOT APPLICABLE OR UNSP (9) delivery, delivered, current hospitalization Code(s): O82 - ENCOUNTER FOR DELIVERY WITHOUT INDICATION Assessment/Plan pt improving, wbc count is still high , though pt is afebrile , , will continue iv antibiotics Iv Ancef & IV Gentamicin. ducolax suppository today Encourage ambulation, po fluids & deep breathing change iv to saline lock
--- NOTE | 2017-04-11 18:27 | HOSP ---
Physical Examination Vital Signs: Vital Signs Temperature 97.6 F 04/11/17 17:53 Pulse Rate 105 H 04/11/17 17:53 Respiratory Rate 20 04/11/17 17:53 Blood Pressure 125/81 04/11/17 17:53 O2 Sat by Pulse Oximetry (%) 98 04/11/17 09:30 Findings/Remarks: Subjective: The patient was seen and examined at the bedside. She reports palpitations and feeling like her heart is racing on and off. She reports when she feels the palpitations her chest becomes very heavy. She reports that she cannot lay the bed flat because then she feels a heaviness on her chest and cannot breath. She states she has noticed b/l lower extremity edema after delivery. She denies any shortness of breath at this time or palpitations. She denies any calf tenderness. The patient reports a few months ago she went to a hospital in [place] because she felt she was in labor. At that time, they found her to be tachycardia. She reports she received two shots and was worked up by cardiology. She states she does not know the outcome of the workup. Physical Exam: General: NAD, A&Ox3 Lungs: CTA bilaterally Heart: Tachycardia, S1S2, no murmurs noted Abd: Distended. Fundus below umbilicus Ext: B/l trace to 1+ pitting edema. No erythema noted, no calf tenderness. 2+ DP /PT bilaterally Neuro: CN 2-12 intact Plan: 1) Cardiology: Tachycardia, palpitations, chest heaviness, orthopnea - EKG sinus tachycardia - F/u cardiac profile, troponin - F/u BNP - B/l lower extremity pitting edema - F/u b/l lower extremity doppler to r/o DVT - F/u ECHO to r/o LV dysfunction - Holter monitor (unable to obtain now). Will transfer to tele - F/u cardiology consult 2) OB: , Sepsis 2/2 Chorioamnionitis - Continue current treatment per OB - Tachycardia 2/2 sepsis? - Improving today - F/u final intrauterine wound culture Thank you for this consultative opportunity Labs: CBC, BMP 04/11/17 05:35 04/10/17 07:45
[2017-04-11 19:52] LABS: CPK 70 IU/L (26-192)
[2017-04-11 19:53] LABS: TROPONIN I < 0.02 ng/ml (0.00-0.05)
[2017-04-12] MEDS: oxyCODONE HCL 5 MG TABLET PO PRN ×2 (02:34→11:59)
[2017-04-12] MEDS: GENTAMICIN 80 MG PREMIXED IVPB 100 ML IVPB SCH (02:34)
[2017-04-12] MEDS ORDERED: ceFAZolin SODIUM 1 GM VIAL ONE (05:58)
[2017-04-12] MEDS ORDERED: DEXTROSE 5%-WATER - 50 ML IVPB ONE (05:58)
[2017-04-12] MEDS: CEFAZOLIN 1 GM in DEXTROSE 5%-WATER - 50 ML IVPB SCH (06:36)
[2017-04-12] MEDS: SODIUM CHLORIDE 1,000 ML IV SCH (06:36)
[2017-04-12] MEDS: IBUPROFEN 600 MG TABLET (FP) PO PRN (06:37)
[2017-04-12 07:52] LABS: BASOPHIL 0.1 % (0-2.0); EOSINOPHIL 2.1 % (0-4.5); MCH 31.8 pg (25.7-33.7); MCHC 33.8 g/dl (32.0-36.0); MEAN CELL VOLUME 94.2 fl (80-96); MEAN PLT VOLUME 7.2 fl (7.5-11.1); NEUTROPHILS 76.9 % (42.8-82.8); PLATELET COUNT 316 K/MM3 (134-434); RDW 14.5 % (11.6-15.6); WHITE BLOOD COUNT 13.7 K/mm3 (4.0-10.0)
[2017-04-12 08:20] LABS: CPK 78 IU/L (26-192); TROPONIN I < 0.02 ng/ml (0.00-0.05)
--- NOTE | 2017-04-12 09:21 | PN ---
Progress Note (short form) - Note Progress Note: Subjective: The patient was seen and examined at the bedside. She reports shortness of breath is improving, however she still has orthopnea. Patient reports being at [facility] in [place]. She states she has the records and will obtain them for our review. Discussed with Dr. Cadena, called nursing instrumentation supervisor for stat ECHO to r/o cardiomyopathy Current Medications Generic Name Dose Route Start Last Admin Trade Name Freq PRN Reason Stop Dose Admin Acetaminophen 650 mg 04/09/17 09:42 04/11/17 01:37 Tylenol - PO 650 mg Q4H PRN Administration FEVER OR PAIN Bisacodyl 10 mg 04/10/17 09:38 Dulcolax Suppository - RC PRN PRN CONSTIPATION Calamine 1 applic 04/08/17 22:00 04/11/17 23:07 Calamine 8% Topical Lotion - TP 1 applic QID MARY Administration Diphenhydramine HCl 25 mg 04/09/17 09:42 04/10/17 02:36 Benadryl Injection - IVPUSH 25 mg Q4H PRN Administration Pruritis Ferrous Sulfate 325 mg 04/10/17 22:00 04/11/17 23:07 Feosol - PO 325 mg BID MARY Administration Cefazolin Sodium 1 gm/ 50 mls @ 100 mls/hr 04/09/17 14:00 04/12/17 06:36 Dextrose IVPB 100 mls/hr Q8H MARY Administration Dextrose/Lactated Ringer's 1,000 mls @ 125 mls/hr 04/09/17 09:45 04/10/17 08:18 Pitocin 20 Units In D5-Lr - IV 125 mls/hr ASDIR MARY Administration Gentamicin Sulfate/Sodium Chloride 100 mls @ 100 mls/hr 04/09/17 10:00 02:34 Garamycin 80 Mg Premixed Ivpb - IVPB 100 mls/hr Q8H-IV MARY Administration Sodium Chloride 1,000 mls @ 75 mls/hr 04/11/17 02:15 04/12/17 06:36 Normal Saline - IV Not Given ASDIR MARY Ibuprofen 600 mg 04/09/17 09:42 04/12/17 06:37 Motrin - PO 600 mg Q4H PRN Administration PAIN Methylergonovine Maleate 0.2 mg 04/09/17 09:38 04/09/17 21:32 Methergine Injection - IM 0.2 mg Q4H PRN Administration Excessive Bleeding (L&D) Oxycodone HCl 5 mg 04/10/17 08:00 04/12/17 02:34 Roxicodone - PO 5 mg Q4H PRN Administration PAIN LEVEL 1-5 Oxycodone HCl 10 mg 04/10/17 08:00 Roxicodone - PO Q4H PRN PAIN LEVEL 6-10 Multivit/Folic Acid/Iron 1 tab 04/10/17 10:00 04/11/17 10:24 Vitamins (Sjr) - PO 1 tab DAILY MARY Administration Simethicone 80 mg 04/09/17 09:38 04/11/17 18:03 Mylicon - PO 80 mg Q4H PRN Administration GAS Objective: Vital Signs Period Temp Pulse Resp BP Sys/Van Pulse Ox Last 24 Hr 97.3 F-98.8 F 105-111 18-20 117-140/63-96 98-100 Physical Exam: General: NAD, A&Ox3 Lungs: CTA bilaterally Heart: Tachycardia, S1S2 Abd: Distended. Fundus below umbilicus Ext: B/l trace to 1+ pitting edema. No erythema noted, no calf tenderness. 2+ DP /PT bilaterally Neuro: CN 2-12 intact CBCD WBC 13.7 K/mm3 (4.0-10.0) H 04/12/17 06:00 RBC 3.20 M/mm3 (3.60-5.2) L 04/12/17 06:00 Hgb 10.2 GM/dL (10.7-15.3) L 04/12/17 06:00 Hct 30.2 % (32.4-45.2) L 04/12/17 06:00 MCV 94.2 fl (80-96) 04/12/17 06:00 MCHC 33.8 g/dl (32.0-36.0) 04/12/17 06:00 RDW 14.5 % (11.6-15.6) 04/12/17 06:00 Plt Count 316 K/MM3 (134-434) 04/12/17 06:00 MPV 7.2 fl (7.5-11.1) L 04/12/17 06:00 CMP Sodium 138 mmol/L (136-145) 04/10/17 07:45 Potassium 3.5 mmol/L (3.5-5.1) 04/10/17 07:45 Chloride 105 mmol/L (98-107) 04/10/17 07:45 Carbon Dioxide 23 mmol/L (21-32) 04/10/17 07:45 Anion Gap 10 (8-16) 04/10/17 07:45 BUN 4 mg/dL (7-18) L D 04/10/17 07:45 Creatinine 0.5 mg/dL (0.55-1.02) L 04/10/17 07:45 Creat Clearance w eGFR > 60 (>60) 04/10/17 07:45 Random Glucose 87 mg/dL (74-106) 04/10/17 07:45 Calcium 8.3 mg/dL (8.5-10.1) L 04/10/17 07:45 Total Bilirubin 0.8 mg/dL (0.2-1.0) D 04/10/17 07:45 AST 18 U/L (15-37) 04/10/17 07:45 ALT 15 U/L (12-78) D 04/10/17 07:45 Alkaline Phosphatase 123 U/L (45-117) H D 04/10/17 07:45 Total Protein 4.6 g/dl (6.4-8.2) L D 04/10/17 07:45 Albumin 2.1 g/dl (3.4-5.0) L D 04/10/17 07:45 CARDIAC ENZYMES Creatine Kinase 78 IU/L (26-192) 04/12/17 07:00 Troponin I < 0.02 ng/ml (0.00-0.05) 04/12/17 07:00 Plan: 1) Cardiology: Tachycardia, palpitations, chest heaviness, orthopnea - EKG x2 sinus tachycardia - Trop x2 negative - BNP mildly elevated - B/l lower extremity pitting edema - B/l lower extremity doppler negative for DVT - ECHO to r/o cardiomyopathy - F/u cards consult, discussed case with Dr. Reyes 2) OB: , Sepsis 2/2 Chorioamnionitis - Continue current treatment per OB - Tachycardia 2/2 sepsis? - Improving today - F/u final intrauterine wound culture Thank you for this consultative opportunity Visit type - Emergency Visit Emergency Visit: Yes ED Registration Date: 04/08/17 Care time: The patient presented to the Emergency Department on the above date and was hospitalized for further evaluation of their emergent condition. - New Patient This patient is new to me today: No - Critical Care Critical Care patient: No
[2017-04-12] MEDS ORDERED: PT OWN MED DRAWER 7, Y5N ONE (09:34)
[2017-04-12] MEDS: FERROUS SO4 325 MG TABLET (FP) PO SCH ×2 (10:10→21:06)
--- NOTE | 2017-04-12 10:44 | PN ---
Progress Note (short form) - Note Progress Note: Chief Complaint: Events noted notes reviewed, palpitations referable to sinus tachycardia, orthopnea and peripheral edema History of Present Illness: Seen and examined on telemetry. Full consult dictated Echocardiography revealed normal LV systolic dysfunction with no wall motion abnormality, normal RV size and function, mild MR, moderate TR with moderate pulmonary HTN, RVSP 40-50 mmHg - Current Medication List Current Medications Acetaminophen (Tylenol -) 650 mg PO Q4H PRN PRN Reason: FEVER OR PAIN Last Admin: 04/11/17 01:37 Dose: 650 mg Bisacodyl (Dulcolax Suppository -) 10 mg RC PRN PRN PRN Reason: CONSTIPATION Calamine (Calamine 8% Topical Lotion -) 1 applic TP QID MARY Last Admin: 04/11/17 23:07 Dose: 1 applic Diphenhydramine HCl (Benadryl Injection -) 25 mg IVPUSH Q4H PRN PRN Reason: Pruritis Last Admin: 04/10/17 02:36 Dose: 25 mg Ferrous Sulfate (Feosol -) 325 mg PO BID MARY Last Admin: 04/12/17 10:10 Dose: 325 mg Cefazolin Sodium 1 gm/ (Dextrose) 50 mls @ 100 mls/hr IVPB Q8H MARY Last Admin: 04/12/17 06:36 Dose: 100 mls/hr Dextrose/Lactated Ringer's (Pitocin 20 Units In D5-Lr -) 1,000 mls @ 125 mls/ hr IV ASDIR MARY Last Admin: 04/10/17 08:18 Dose: 125 mls/hr Gentamicin Sulfate/Sodium Chloride (Garamycin 80 Mg Premixed Ivpb -) 100 mls @ 100 mls/hr IVPB Q8H-IV MARY Last Admin: 04/12/17 02:34 Dose: 100 mls/hr Sodium Chloride (Normal Saline -) 1,000 mls @ 75 mls/hr IV ASDIR MARY Last Admin: 04/12/17 06:36 Dose: Not Given Ibuprofen (Motrin -) 600 mg PO Q4H PRN PRN Reason: PAIN Last Admin: 04/12/17 06:37 Dose: 600 mg Methylergonovine Maleate (Methergine Injection -) 0.2 mg IM Q4H PRN PRN Reason: Excessive Bleeding (L&D) Last Admin: 04/09/17 21:32 Dose: 0.2 mg Oxycodone HCl (Roxicodone -) 5 mg PO Q4H PRN PRN Reason: PAIN LEVEL 1-5 Last Admin: 04/12/17 02:34 Dose: 5 mg Oxycodone HCl (Roxicodone -) 10 mg PO Q4H PRN PRN Reason: PAIN LEVEL 6-10 Multivit/Folic Acid/Iron ( Vitamins (Sjr) -) 1 tab PO DAILY MARY Last Admin: 04/11/17 10:24 Dose: 1 tab Simethicone (Mylicon -) 80 mg PO Q4H PRN PRN Reason: GAS Last Admin: 04/11/17 18:03 Dose: 80 mg - Review of Systems Constitutional: denies: Chills, Fever Cardiovascular: As Noted Above Respiratory: denies: Cough or Sputum Production Gastrointestinal: denies: Nausea, Vomiting, Diarrhea or Constipation Musculoskeletal: No symptoms Reported Neurological: denies: Dizziness or Headaches - Objective Vital Signs: Last Vital Signs Temp Pulse Resp BP Pulse Ox 97.9 F 110 H 20 139/87 100 04/12/17 06:00 04/12/17 06:00 04/12/17 06:00 04/12/17 06:00 04/11/17 23:39 Intake & Output 04/09/17 04/10/17 04/11/17 04/12/17 23:59 23:59 23:59 23:59 Intake Total 2290 2100 850 750 Output Total 4800 3500 Balance -2510 -1400 850 750 Neck: Supple Negative JVD No Bruit Cardiovascular: S1 S2 Regular Rate Rhythm Grade 1/6 Systolic Apical Murmur Respiratory: Diminished at the Bases Gastrointestinal: Soft Benign Normal Bowel Sounds Ext: Edema Labs: Troponin, BNP 04/11/17 04/12/17 18:40 07:00 Troponin I < 0.02 < 0.02 B-Natriuretic Peptide 448.96 H CBC, BMP 04/12/17 06:00 04/10/17 07:45 Hepatic Panel Total Bilirubin 0.8 mg/dL (0.2-1.0) D 04/10/17 07:45 AST 18 U/L (15-37) 04/10/17 07:45 ALT 15 U/L (12-78) D 04/10/17 07:45 Alkaline Phosphatase 123 U/L (45-117) H D 04/10/17 07:45 Albumin 2.1 g/dl (3.4-5.0) L D 04/10/17 07:45 INR, PTT INR 1.03 (0.82-1.09) 04/08/17 23:40 Assessment/Plan ASSESSMENT: 1. Palpitation referable to sinus tachycardia, probably etiology of which is multi-factorial volume overload, post operative fever, acute chorioamnionitis, no evidence of post cardiomyopathy (last differential is inappropriate sinus tachycardia syndrome in absence of any other pathology) 2. Orthopnea and peripheral edema referable to volume overload, no clinical indications for LV or RV failure 3. Pulmonary HTN moderate in severity post likely related unlikely to be PTE but to be excluded 4. Post 5. Acute chorioamnionitis PLAN: 1. Diuretics with caution 2. No indications for B-Derrick therapy at this point for the above noted symptomatic sinus tachycardia unless it is persistent with resolution of other pathologies 3. Antibiotics as per the primary team Luiz Cadena M.D.
--- NOTE | 2017-04-12 11:01 | PN ---
Post Progress Note - Subjective Subjective: pt c/o palpitation last night, presently she does not have symptoms of palpitation or finger numbness, or headche still c/o pain , incision site, no c/o gaseous discomfort since she had BM done yesterday no longer c/o pain in Right middle quadrant bleeding scanty pt denies problem of anxiety Post Day: 3 Type of Delivery: Primary C/S Vital Signs: Vital Signs Temperature 97.9 F 04/12/17 06:00 Pulse Rate 110 H 04/12/17 06:00 Respiratory Rate 20 04/12/17 06:00 Blood Pressure 139/87 04/12/17 06:00 O2 Sat by Pulse Oximetry (%) 100 04/11/17 23:39 pt on telemetry, sinus tachycardia is noted Breast Exam: Yes: Soft, Other (pumping ). No: Engorged Uterus: Yes: Fundus Firm, Fundus below umbilicus (tender , but less than before ) Incision: Yes: [place] intact. No: Redness, Oozing Abdomen/GI: Yes: Abdomen soft, Tender (only over uterus . no cva tenderness ), Passing flatus (bm done ), Tolerating PO (diet ). No: Abdominal Distention Lochia: Yes: Rubra Lochia, amount: Small Extremities: Yes: Calves non-tender, Edema (1+/1+) Perineum: Yes: Intact Activity: Ambulating - Labs Labs: CBC WBC 13.7 K/mm3 (4.0-10.0) H 04/12/17 06:00 Corrected WBC (auto) Cancelled 04/08/17 20:00 RBC 3.20 M/mm3 (3.60-5.2) L 04/12/17 06:00 Hgb 10.2 GM/dL (10.7-15.3) L 04/12/17 06:00 Hct 30.2 % (32.4-45.2) L 04/12/17 06:00 MCV 94.2 fl (80-96) 04/12/17 06:00 MCH 31.8 pg (25.7-33.7) 04/12/17 06:00 MCHC 33.8 g/dl (32.0-36.0) 04/12/17 06:00 RDW 14.5 % (11.6-15.6) 04/12/17 06:00 Plt Count 316 K/MM3 (134-434) 04/12/17 06:00 MPV 7.2 fl (7.5-11.1) L 04/12/17 06:00 Total Counted 100 04/10/17 07:45 Neutrophils % 76.9 % (42.8-82.8) 04/12/17 06:00 Neutrophils % (Manual) 77 % (42.8-82.8) 04/10/17 07:45 Band Neuts % (Manual) 2 % (0-10) 04/10/17 07:45 Lymphocytes % 15.4 % (8-40) D 04/12/17 06:00 Lymphocytes % (Manual) 10 % (8-40) 04/10/17 07:45 Monocytes % 5.5 % (3.8-10.2) 04/12/17 06:00 Monocytes % (Manual) 10 % (3.8-10.2) 04/10/17 07:45 Eosinophils % 2.1 % (0-4.5) 04/12/17 06:00 Eosinophils % (Manual) 1 % (0-4.5) 04/10/17 07:45 Basophils % 0.1 % (0-2.0) 04/12/17 06:00 Platelet Estimate Adequate (NORMAL) 04/10/17 07:45 Platelet Comment No clumping noted 04/10/17 07:45 Platelet Comment Cancelled 04/08/17 20:00 RBC Morphology Cancelled 04/08/17 20:00 Retic Count 3.41 % (0.5-1.5) H 04/08/17 20:00 Haptoglobin 160 mg/dL (34-200) 04/08/17 20:00 Laboratory Tests 04/11/17 04/12/17 18:40 07:00 Creatine Kinase 70 78 Troponin I < 0.02 B-Natriuretic Peptide 448.96 H Microbiology 04/09/17 08:54 Intrauterine Gram Stain - Final 04/09/17 08:54 Intrauterine Wound Culture - Preliminary Staphylococcus Coagulase Neg Other Findings, Remarks: rs cta Chest Xray neg on 04/11/17 Problem List - Problems (1) with 39 completed weeks gestation Code(s): Z3A.39 - 39 WEEKS GESTATION OF (2) Pruritus of in third trimester Code(s): O99.713 - DISEASES OF THE SKIN, SUBCU COMP , THIRD TRIMESTER L29.9 - PRURITUS, UNSPECIFIED (3) SROM (spontaneous rupture of membranes) Code(s): VLD5305 - (4) Labor established Code(s): DFG9176 - (5) Obesity (BMI 30.0-34.9) Code(s): E66.9 - OBESITY, UNSPECIFIED (6) Non-reassuring electronic monitoring tracing Code(s): O76 - ABNLT IN HEART RATE AND RHYTHM COMP LABOR AND DELIVERY (7) Maternal pyrexia during labor, delivered, current hospitalization Code(s): O75.2 - PYREXIA DURING LABOR, NOT ELSEWHERE CLASSIFIED (8) Acute chorioamnionitis Code(s): O41.1290 - CHORIOAMNIONITIS, UNSP TRIMESTER, NOT APPLICABLE OR UNSP (9) delivery, delivered, current hospitalization Code(s): O82 - ENCOUNTER FOR DELIVERY WITHOUT INDICATION Assessment/Plan stable , post c/section s/p ac chorioamnionitis on gentamicin & iv ancef i will d/c iv antibiotics today, since uterine tenderness is still persistent i will continue po Augmentin for 7 days h/o palpitation, sinus tachycardia, pt is being monitored at Telemetry unit, Cardiac work up is being done Cardiology consult is reviewed . Sinus Tachycardia is diagnosed Plan : ct PO Augmentin . If stable, will discharge tomorrow
[2017-04-12] MEDS: PRENATAL VITAMINS W/ FOLIC ACID TABLET (FP) PO SCH (11:50)
[2017-04-12] MEDS: ACETAMINOPHEN 325 MG TABLET (FP) PO PRN (11:57)
[2017-04-12] MEDS: FUROSEMIDE 40 MG/4 ML INJECTABLE VIAL IVPUSH SCH (13:04)
[2017-04-12] MEDS: AMOX TR/POT CLAV 875MG/125MG TABLETS (FP) PO SCH (18:23)
[2017-04-12] MEDS ORDERED: RANITIDINE HCL 150 MG TABLET (FP) PO ONE (20:40)
[2017-04-12] MEDS: CALAMINE 8% TOPICAL LOTION 177 ML BOTTLE TP SCH (21:06)
[2017-04-13] MEDS: oxyCODONE HCL 5 MG TABLET PO PRN ×2 (04:00→11:12)
[2017-04-13] MEDS: ACETAMINOPHEN 325 MG TABLET (FP) PO PRN ×2 (04:01→11:11)
[2017-04-13 07:54] LABS: MCH 31.4 pg (25.7-33.7); MCHC 33.4 g/dl (32.0-36.0); MEAN CELL VOLUME 93.8 fl (80-96); PLATELET COUNT 397 K/MM3 (134-434); RDW 14.1 % (11.6-15.6); WHITE BLOOD COUNT 13.3 K/mm3 (4.0-10.0)
[2017-04-13] MEDS: AMOX TR/POT CLAV 875MG/125MG TABLETS (FP) PO SCH (08:23)
[2017-04-13 08:31] LABS: ALBUMIN 2.4 g/dl (3.4-5.0); ANION GAP 11 (8-16); CALCIUM 8.4 mg/dL (8.5-10.1); CO2 27 mmol/L (21-32); GLUCOSE,RANDOM 73 mg/dL (74-106)
[2017-04-13 08:35] LABS: ALK PHOS 120 U/L (45-117); BILIRUBIN,TOTAL 0.3 mg/dL (0.2-1.0); CREATININE 0.6 mg/dL (0.55-1.02); SGOT/AST 54 U/L (15-37); SGPT/ALT 38 U/L (12-78); TOT PROT 5.5 g/dl (6.4-8.2)
[2017-04-13] MEDS ORDERED: PT OWN MED DRAWER 7, Y5N ONE (09:09)
--- NOTE | 2017-04-13 09:41 | DS ---
Physical Exam-DIGITAL PROJECT COORDINATOR Vital Signs: Vital Signs Temperature 97.6 F 04/13/17 06:00 Pulse Rate 93 H 04/13/17 06:00 Respiratory Rate 18 04/13/17 06:00 Blood Pressure 145/75 04/13/17 06:00 O2 Sat by Pulse Oximetry (%) 100 04/13/17 06:00 Constitutional: Yes: Well Nourished, Anxious, Mild Distress, Obese Eyes: Yes: WNL HENT: Yes: WNL Neck: Yes: WNL Cardiovascular: Yes: Tachycardia, Other (pt c/o palpitation & chest pain last night also CT chest was done to r/o PE . report negative) Respiratory: Yes: WNL, CTA Bilaterally Gastrointestinal: Yes: WNL, Normal Bowel Sounds, Soft, Abdomen, Obese, Other ( bmdone). No: Distention, Vomiting Renal/: Yes: WNL, Other (voiding without difficulty). No: CVA Tenderness - Left, CVA Tenderness - Right ....Post : Yes: Uterus firm, Uterus tender, Slight lochia rubra (no odor) Breast(s): Yes: WNL (not engorged. . breast pump is used) Musculoskeletal: Yes: WNL Extremities: Yes: WNL. No: Calf Tenderness (doppler flow study negative) Edema: Yes Edema: LLE: 1+, RLE: 1+ Integumentary: Yes: Tattoos, Other (pruritis , less, no rash . pt using Lotion calmine for local application) Wound/Incision: Yes: Clean/Dry, Well Approximated, Steri Strips, Open to air, Carlos Removed. No: Draining, Reddened, Bleeding Neurological: Yes: WNL, Alert, Oriented ...Motor Strength: WNL Psychiatric: Yes: WNL, Alert, Oriented Labs: CBC, BMP 04/13/17 06:00 04/13/17 06:00 Laboratory Tests 04/11/17 04/12/17 04/13/17 18:40 07:00 06:00 Total Bilirubin 0.3 D AST 54 H D ALT 38 D Creatine Kinase 70 78 Troponin I < 0.02 < 0.02 B-Natriuretic Peptide 448.96 H Delivery - Delivery Section: Primary, Low Flap Transverse (Iindication: 39.2 weeks, ac chorioamnionitis( Maternal fever, fetaltachycardia), Non reassuring FHR) Type of Anesthesia: Epidural Episiotomy/Laceration: None EBL (cc): 1,200 (urine output 400 ml) Delivery, Single - Stages of Labor Date 1st Stage Initiatied: 04/08/17 Time 1st Stage Initiated: 22:00 Date of Delivery: 04/09/17 Time of Delivery: 08:54 Time Placenta Delivered: 08:55 Placenta: Yes: Manual Removal, Uterine Exploration - 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 presented with pruritis of HELLP work Up neg pt had SROM & went into spontaneous labor Intrapartum fever T max 101.1 rx iv Ancef 2 gm & IVtylenol was given Ac chorioamnionitis suspected . intraop cord blood gas was collected, but it was not picked up by respiratory for than > 1hr , hence it was not done since as per respiratory results won't be re;iable pt was taken for primary c/section intraop course was uneventful was transferred to [facility] in NICU . post operative course IV Ancef & Gentamicin was continued for 3days postop followed by Po Augmentin 875 mg BID x7 days. post op she was afebrile, uterine tenderness markedly less, still present. Uterine culture neg . Pruritis is less , still present Pt continue to have Sinus Tachycardia , EKG was done . po day #2 at night she was transferred to telemetry unit ECHO cardiogram was done , Tricuspid regurgitation & pulmonary hypertension was noted Consult with Dr Iglesias Identification Technician was obtained, supected fluid overload , RX Lasix x2 doses Anxiety element is also suspected , she was given Xantax by Hospitalist . I spoke with Hospitalist & Dr Iglesias , we together agree she can be discharged today She will follow with Dr Iglesias in the office She refuses to go back to Dr Pacheco's office for follow up . she will RTC 1n 1 week for post op wound , pp follow up Note baby is doing better at [facility] , baby is extubated.. Discharge Summary Reason For Visit: LABOR ADMIT Current Active Problems Acute chorioamnionitis (Acute) delivery, delivered, current hospitalization (Acute) Labor established (Acute) Maternal pyrexia during labor, delivered, current hospitalization (Acute) Non-reassuring electronic monitoring tracing (Acute) Obesity (BMI 30.0-34.9) (Acute) PUPP (pruritic urticarial papules and plaques of ) (Acute) with 39 completed weeks gestation (Acute) Pruritus of in third trimester (Acute) SROM (spontaneous rupture of membranes) (Acute) Sinus tachycardia by electrocardiography (Acute) Status post primary low transverse section (Acute) - Instructions Diet, Activity, Other Instructions: Post Instructions DIET: Continue good diet high in protein, calcium, and iron rich foods. Drink at least eight (8) glasses of water daily in addition to other fluids. ct Regular diet MEDICATIONS: Continue vitamins and iron as previously directed. Motrin and Tylenol may be taken for minor discomfort. ACTIVITY: Mild to moderate exercise may be started in two (2) weeks. Take frequent rest periods. Resume normal activity after six (6) week check up. WOUND CARE OF OPERATIVE SITE: Continue use of perineal bottle until vaginal discharge stops. Keep area clean. Shower daily. Keep abdominal wound dry. Report any drainage or redness to physician. Tub baths, tampons and douches are not permitted for [address] Breast feeding & or Bottle feeding BREAST CARE: (For those that are not breast feeding): If engorgement occurs: Wear tight fitting bra. Take Tylenol or Motrin for pain. Apply cold packs (ice in bags to each breast ) FAMILY PLANNING: There are many control alternatives to pursue and they should be discussed at your first office visit. You may resume sexual activity after your six (6) week check up. (Remember, breast feeding is not a contraceptive) NEXT PHYSICIAN APPOINTMENT: Be certain to call for a one (1) week appointment, unless otherwise directed. Rtc 2, [facility] .[phone] for wound check Call Dr Iglesias's office for cardiac follow up Call Clinic or got to Emergency Dept if you have any of the following: Heavy vaginal bleeding Painful urination Leg pain Unusual odor noted to vaginal bleeding High fever Red streaking noted on breast Referrals: Luiz Cadena MD [Staff Physician] - (Please follow-up with cardiology within 1 week for further work-up of your lower extremity edema) Tito Pacheco MD [Primary Care Provider] - Gabriella Smith MD [Staff Physician] - David Mccarty MD [Staff Physician] - (Please follow-up with pulmonary for an outpatient sleep study to assess if you have sleep apnea) - Home Medications Comprehensive Discharge Medication List: Ambulatory Orders Vits #93/Iron Fum/FA [ Formula Tablet] 1 each PO DAILY Acetaminophen [Tylenol .Regular Strength -] 500 mg PO Q4H PRN #30 tablet Amox-Tr/K Cl [Augmentin 875-125mg Tablet -] 1 tab PO BID@0800,1730 #14 tablet Calamine 8% Topical Lotion - 1 applic TP QID bottle 04/13/17 Ferrous Sulfate [Feosol] 325 mg PO BID #60 tab 04/13/17 Ibuprofen [Motrin -] 600 mg PO Q4H PRN #30 tablet 04/13/17 Vitamins (Sjr) - 1 tab PO DAILY #30 tablet 04/13/17
[2017-04-13] MEDS: FERROUS SO4 325 MG TABLET (FP) PO SCH (09:48)
[2017-04-13] MEDS: FUROSEMIDE 40 MG/4 ML INJECTABLE VIAL IVPUSH SCH (09:49)
[2017-04-13] MEDS: PRENATAL VITAMINS W/ FOLIC ACID TABLET (FP) PO SCH (09:49)
--- NOTE | 2017-04-13 09:51 | PN ---
Progress Note (short form) - Note Progress Note: Subjective: The patient was seen and examined at the bedside. She states had chest burning last night that was relieved after she took Zantac Current Medications Generic Name Dose Route Start Last Admin Trade Name Freq PRN Reason Stop Dose Admin Acetaminophen 650 mg 04/09/17 09:42 04/13/17 04:01 Tylenol - PO 650 mg Q4H PRN Administration FEVER OR PAIN Amoxicillin/Clavulanate Potassium 1 tab 04/12/17 17:30 04/13/17 08:23 Augmentin - 875mg Tablet PO 1 tab BID@0800,1730 MARY Administration Bisacodyl 10 mg 04/10/17 09:38 Dulcolax Suppository - RC PRN PRN CONSTIPATION Calamine 1 applic 04/08/17 22:00 04/12/17 21:06 Calamine 8% Topical Lotion - TP 1 applic QID MARY Administration Diphenhydramine HCl 25 mg 04/09/17 09:42 04/10/17 02:36 Benadryl Injection - IVPUSH 25 mg Q4H PRN Administration Pruritis Ferrous Sulfate 325 mg 04/10/17 22:00 04/13/17 09:48 Feosol - PO 325 mg BID MARY Administration Furosemide 40 mg 04/12/17 12:45 04/13/17 09:49 Lasix Injection - IVPUSH 40 mg DAILY MARY Administration Sodium Chloride 1,000 mls @ 75 mls/hr 04/11/17 02:15 04/12/17 06:36 Normal Saline - IV Not Given ASDIR MARY Ibuprofen 600 mg 04/09/17 09:42 04/12/17 06:37 Motrin - PO 600 mg Q4H PRN Administration PAIN Methylergonovine Maleate 0.2 mg 04/09/17 09:38 04/09/17 21:32 Methergine Injection - IM 0.2 mg Q4H PRN Administration Excessive Bleeding (L&D) Oxycodone HCl 5 mg 04/10/17 08:00 04/13/17 04:00 Roxicodone - PO 5 mg Q4H PRN Administration PAIN LEVEL 1-5 Oxycodone HCl 10 mg 04/10/17 08:00 04/12/17 19:47 Roxicodone - PO 10 mg Q4H PRN Administration PAIN LEVEL 6-10 Multivit/Folic Acid/Iron 1 tab 04/10/17 10:00 04/13/17 09:49 Vitamins (Sjr) - PO 1 tab DAILY MARY Administration Simethicone 80 mg 04/09/17 09:38 04/11/17 18:03 Mylicon - PO 80 mg Q4H PRN Administration GAS Objective: Vital Signs Period Temp Pulse Resp BP Sys/Van Pulse Ox Last 24 Hr 97.3 F-98.8 F 93-115 18-20 137-162/75-90 97-100 Physical Exam: General: NAD, A&Ox3 Lungs: CTA bilaterally Heart: Tachycardia, S1S2 Abd: Distended. Fundus below umbilicus Ext: B/l trace to 1+ pitting edema. No erythema noted, no calf tenderness. 2+ DP /PT bilaterally Neuro: CN 2-12 intact CBCD WBC 13.3 K/mm3 (4.0-10.0) H 04/13/17 06:00 RBC 3.52 M/mm3 (3.60-5.2) L 04/13/17 06:00 Hgb 11.0 GM/dL (10.7-15.3) 04/13/17 06:00 Hct 33.0 % (32.4-45.2) 04/13/17 06:00 MCV 93.8 fl (80-96) 04/13/17 06:00 MCHC 33.4 g/dl (32.0-36.0) 04/13/17 06:00 RDW 14.1 % (11.6-15.6) 04/13/17 06:00 Plt Count 397 K/MM3 (134-434) D 04/13/17 06:00 MPV 7.0 fl (7.5-11.1) L 04/13/17 06:00 CMP Sodium 142 mmol/L (136-145) 04/13/17 06:00 Potassium 4.1 mmol/L (3.5-5.1) 04/13/17 06:00 Chloride 104 mmol/L (98-107) 04/13/17 06:00 Carbon Dioxide 27 mmol/L (21-32) 04/13/17 06:00 Anion Gap 11 (8-16) 04/13/17 06:00 BUN 5 mg/dL (7-18) L D 04/13/17 06:00 Creatinine 0.6 mg/dL (0.55-1.02) 04/13/17 06:00 Creat Clearance w eGFR > 60 (>60) 04/13/17 06:00 Random Glucose 73 mg/dL (74-106) L 04/13/17 06:00 Calcium 8.4 mg/dL (8.5-10.1) L 04/13/17 06:00 Total Bilirubin 0.3 mg/dL (0.2-1.0) D 04/13/17 06:00 AST 54 U/L (15-37) H D 04/13/17 06:00 ALT 38 U/L (12-78) D 04/13/17 06:00 Alkaline Phosphatase 120 U/L (45-117) H 04/13/17 06:00 Total Protein 5.5 g/dl (6.4-8.2) L 04/13/17 06:00 Albumin 2.4 g/dl (3.4-5.0) L 04/13/17 06:00 CARDIAC ENZYMES Creatine Kinase 78 IU/L (26-192) 04/12/17 07:00 Troponin I < 0.02 ng/ml (0.00-0.05) 04/12/17 07:00 Microbiology 04/09/17 08:54 Intrauterine Gram Stain - Final 04/09/17 08:54 Intrauterine Wound Culture - Final Staphylococcus Lugdunensis Plan: 1) Cardiology: Tachycardia, palpitations, chest heaviness, orthopnea - EKG x2 sinus tachycardia - Trop x2 negative - BNP mildly elevated - B/l lower extremity pitting edema - B/l lower extremity doppler negative for DVT - ECHO with no cardiomyopathy - D-dimer elevated. CTA negative for PE - F/u outpatient pulmonary for sleep study - Appreciate cardiology consult 2) OB: , Sepsis 2/2 Chorioamnionitis - Continue current treatment per OB - Outpatient abx per OB Thank you for this consultative opportunity Visit type - Emergency Visit Emergency Visit: Yes ED Registration Date: 04/08/17 Care time: The patient presented to the Emergency Department on the above date and was hospitalized for further evaluation of their emergent condition. - New Patient This patient is new to me today: No - Critical Care Critical Care patient: No
--- NOTE | 2017-04-13 09:52 | EKG ---
Test Reason : Blood Pressure : / mmHG Vent. Rate : 115 BPM Atrial Rate : 115 BPM P-R Int : 144 ms QRS Dur : 066 ms QT Int : 322 ms P-R-T Axes : 056 056 019 degrees QTc Int : 445 ms SINUS TACHYCARDIA OTHERWISE NORMAL ECG WHEN COMPARED WITH ECG OF 09-APR-2017 12:43, NO SIGNIFICANT CHANGE WAS FOUND Confirmed by MD RULA, JOSE ([id number]) on 04/13/2017 9:52:24 AM Referred By: Confirmed By:JOSE HORTA MD
--- NOTE | 2017-04-13 10:18 | PN ---
Progress Note (short form) - Note Progress Note: Chief Complaint: Events noted notes reviewed, episode of chest discomfort alleviated post Zantac administration, currently denies any chest pain or dyspnea, palpitations referable to sinus tachycardia have resolved (although sinus tachycardia persists), peripheral edema resolving History of Present Illness: Seen and examined on telemetry. Events noted notes reviewed, episode of chest discomfort alleviated post Zantac administration, currently denies any chest pain or dyspnea, palpitations referable to sinus tachycardia have resolved ( although sinus tachycardia persists), peripheral edema resolving Recommend one additional dose of Lasix today and can be D/C home without any additional therapy, if palpitations persist post D/C additional cardiovascular evaluation is recommended Echocardiography revealed normal LV systolic dysfunction with no wall motion abnormality, normal RV size and function, mild MR, moderate TR with moderate pulmonary HTN, RVSP 40-50 mmHg - Current Medication List Current Medications Acetaminophen (Tylenol -) 650 mg PO Q4H PRN PRN Reason: FEVER OR PAIN Last Admin: 04/13/17 04:01 Dose: 650 mg Amoxicillin/Clavulanate Potassium (Augmentin - 875mg Tablet) 1 tab PO BID@0800, 1730 [facility] Last Admin: 04/13/17 08:23 Dose: 1 tab Bisacodyl (Dulcolax Suppository -) 10 mg RC PRN PRN PRN Reason: CONSTIPATION Calamine (Calamine 8% Topical Lotion -) 1 applic TP QID [facility] Last Admin: 04/12/17 21:06 Dose: 1 applic Diphenhydramine HCl (Benadryl Injection -) 25 mg IVPUSH Q4H PRN PRN Reason: Pruritis Last Admin: 04/10/17 02:36 Dose: 25 mg Ferrous Sulfate (Feosol -) 325 mg PO BID [facility] Last Admin: 04/13/17 09:48 Dose: 325 mg Furosemide (Lasix Injection -) 40 mg IVPUSH DAILY [facility] Last Admin: 04/13/17 09:49 Dose: 40 mg Sodium Chloride (Normal Saline -) 1,000 mls @ 75 mls/hr IV ASDIR [facility] Last Admin: 04/12/17 06:36 Dose: Not Given Ibuprofen (Motrin -) 600 mg PO Q4H PRN PRN Reason: PAIN Last Admin: 04/12/17 06:37 Dose: 600 mg Methylergonovine Maleate (Methergine Injection -) 0.2 mg IM Q4H PRN PRN Reason: Excessive Bleeding (L&D) Last Admin: 04/09/17 21:32 Dose: 0.2 mg Oxycodone HCl (Roxicodone -) 5 mg PO Q4H PRN PRN Reason: PAIN LEVEL 1-5 Last Admin: 04/13/17 04:00 Dose: 5 mg Oxycodone HCl (Roxicodone -) 10 mg PO Q4H PRN PRN Reason: PAIN LEVEL 6-10 Last Admin: 04/12/17 19:47 Dose: 10 mg Multivit/Folic Acid/Iron ( Vitamins (Sjr) -) 1 tab PO DAILY MARY Last Admin: 04/13/17 09:49 Dose: 1 tab Simethicone (Mylicon -) 80 mg PO Q4H PRN PRN Reason: GAS Last Admin: 04/11/17 18:03 Dose: 80 mg - Review of Systems Constitutional: denies: Chills, Fever Cardiovascular: As Noted Above Respiratory: denies: Cough or Sputum Production Gastrointestinal: denies: Nausea, Vomiting, Diarrhea or Constipation Musculoskeletal: No symptoms Reported Neurological: denies: Dizziness or Headaches - Objective Vital Signs: Last Vital Signs Temp Pulse Resp BP Pulse Ox 97.6 F 93 H 18 145/75 100 04/13/17 06:00 04/13/17 06:00 04/13/17 06:00 04/13/17 06:00 04/13/17 06:00 Intake & Output 04/10/17 04/11/17 04/12/17 04/13/17 23:59 23:59 23:59 23:59 Intake Total 2100 850 1760 360 Output Total 3500 Balance -3838 735 1295 360 Neck: Supple Negative JVD No Bruit Cardiovascular: S1 S2 Regular Rate Rhythm Grade 1/6 Systolic Apical Murmur Respiratory: Clear to A&P Bilaterally Gastrointestinal: Soft Benign Normal Bowel Sounds Ext: Edema Labs: CBC, BMP 04/13/17 06:00 04/13/17 06:00 INR, PTT INR 1.03 (0.82-1.09) 04/08/17 23:40 Assessment/Plan ASSESSMENT: 1. Palpitation referable to sinus tachycardia, probably etiology of which is multi-factorial volume overload (resolving), post operative fever (resolved), acute chorioamnionitis (resolving), no evidence of post cardiomyopathy ( last differential is inappropriate sinus tachycardia syndrome in absence of any other pathology-further evaluation as outpatient if symptoms persist) 2. Orthopnea and peripheral edema referable to volume overload, no clinical indications for LV or RV failure, resolving 3. Pulmonary HTN moderate in severity, sleep apnea syndrome to be considered as a differential 4. Post 5. Acute chorioamnionitis, resolving PLAN: 1. Additional dose of IV Lasix today as outlined above with caution 2. As outlined no indications for B-Derrick therapy at this point for the above noted symptomatic sinus tachycardia unless it is persistent, outpatient evaluation if necessary 3. Antibiotics as per the primary team 4. Can be D/C home from the cardiovascular point of view Thank you Luiz Cadena M.D.
[2017-04-13 10:49] VITALS: BP 148/90; PULSE 90; TEMP 98.2
--- NOTE | 2017-04-14 12:36 | PATH ---
Surgical Pathology Report Patient Name: DEVON VERA [facility]. Rec. #: [id number] /Age/Gender: 1990 (Age: 26) / F Account: [id number] Location: 4 W TELEMETRY U Taken: 04/09/2017 Received: 04/10/2017 Reported: 04/14/2017 Physicians: Gabriella Smith M.D. Specimen(s) Received PLACENTA Clinical History , 39.2 weeks Suspected chorioamnionitis, maternal temperature 99-101 Severe pruritus Final Diagnosis PLACENTA, DELIVERY: FOCALLY DISRUPTED THIRD TRIMESTER PLACENTA WITH ACUTE CHORIOAMNIONITIS, AND THREE VESSEL UMBILICAL CORD. Electronically Signed Tom Orozco M.D. Gross Description The specimen is received fresh labeled placenta and is a 540 gram, 18.0 x 13.0 x 2.8 cm. placenta with attached membranes and umbilical cord. The attached membranes are beach, translucent with focal opacities and insert marginally. The umbilical cord measures 18.5 cm. in length and averages 1 cm. in diameter. The cord inserts eccentrically, 3.5 cm. to the nearest margin. No true knots or strictures are identified. Cut surface of the umbilical cord reveals 3 vessels. The surface is ramirez-blue with minimal fibrin deposition and appropriate caliber vessels. The maternal surface is red-brown with focal defects. Sectioning reveals red-brown, spongy parenchyma. No lesions are identified. Assistant Clinical Nurse Manager sections are submitted in three cassettes as follows: 1- membrane rolls and umbilical cord; 2-3- full thickness sections of placenta. 04/11/2017 [facility]04/11/2017
--- NOTE | 2017-04-14 23:16 | EKG ---
Test Reason : Blood Pressure : / mmHG Vent. Rate : 109 BPM Atrial Rate : 109 BPM P-R Int : 144 ms QRS Dur : 066 ms QT Int : 326 ms P-R-T Axes : 063 067 029 degrees QTc Int : 439 ms SINUS TACHYCARDIA POSSIBLE LEFT ATRIAL ENLARGEMENT BORDERLINE ECG WHEN COMPARED WITH ECG OF 12-APR-2017 05:29, NO SIGNIFICANT CHANGE WAS FOUND Confirmed by DAYNE RYAN MD ([id number]) on 04/14/2017 11:15:43 PM Referred By: Confirmed By:DAYNE RYAN MD
--- NOTE | 2017-04-14 23:16 | EKG ---
Test Reason : Blood Pressure : / mmHG Vent. Rate : 120 BPM Atrial Rate : 120 BPM P-R Int : 142 ms QRS Dur : 068 ms QT Int : 314 ms P-R-T Axes : 047 044 018 degrees QTc Int : 443 ms SINUS TACHYCARDIA OTHERWISE NORMAL ECG WHEN COMPARED WITH ECG OF 09-APR-2017 12:43, NO SIGNIFICANT CHANGE WAS FOUND Confirmed by DAYNE RYAN MD ([id number]) on 04/14/2017 11:16:04 PM Referred By: Confirmed By:DAYNE RYAN MD
== END 2017-04-13 13:25 | disposition home or self-care (01) | DRG 540 ==
LOC: JER 17:51 → JLDR 22:40 → J3W 04-09 12:31 → J4W 04-11 22:38
PROVIDERS: ADMIT Obstetrics & Gynecology; ATTEND Obstetrics & Gynecology
PROC: 10D00Z1 Extraction of Products of Conception, Low, Open Approach (ICD-10-PCS; principal; 2017-04-09)
DX: O41.1230 Chorioamnionitis, third trimester, not applicable or unspecified (principal); O76 Abnormality in fetal heart rate and rhythm complicating labor and delivery; O75.2 Pyrexia during labor, not elsewhere classified; O99.713 Diseases of the skin and subcutaneous tissue complicating pregnancy, third trimester; L29.9 Pruritus, unspecified; O99.214 Obesity complicating childbirth; E66.8 Other obesity; Z68.34 Body mass index [BMI] 34.0-34.9, adult; O99.89 Other specified diseases and conditions complicating pregnancy, childbirth and the puerperium; G44.89 Other headache syndrome; O85 Puerperal sepsis; R00.0 Tachycardia, unspecified; I27.2 Other secondary pulmonary hypertension; Z3A.39 39 weeks gestation of pregnancy; Z37.0 Single live birth
CPT/HCPCS: 36415; 71010-TC; 71275-TC; 76819-TC; 80053; 81003; 82977; 83010; 83880; 84450; 84460; 84484; 84550; 85025; 85027; 85044; 85379; 85610; 85730; 86593; 86850; 86900; 86901; 87070; 87186; 87205; 87389; 88307-TC; 93005; 93010; 93306-TC; 93970-TC; 94010; 99284-25

== ENCOUNTER 2017-04-17 21:58 | Emergency (ER) | payer OTHER ==
[2017-04-17 22:12] VITALS: BP 151/83; PULSE 87; TEMP 98.2; BMI 31.4
--- NOTE | 2017-04-17 22:49 | PDOC ---
History of Present Illness <Edward Santana - Last Filed: 04/17/17 23:11> - General History Source: Patient Exam Limitations: No Limitations - History of Present Illness Initial Comments: 04/17/17 23:24 The patient is a 26 year old female (1 week , ) with significant past medical history of recent (04/09) at 39 weeks who presents to the ED for open surgical wound and pain to the surgical site prior to arrival. Patient reports about 1 hour prior to arrival she noted her surgical wound was slightly open with some yellow drainage coming from the area. She also reports pain and some redness to the area. Denies fever, chills, or diaphoresis. The patient denies cough, SOB, chest pain, and palpitations. The patient denies abdominal pain, nausea, vomiting, and diarrhea. On 04/09 patient went into the spontaneous labor. Intrapartum fever T max 101.1 was noted and acute chorioamnionitis suspected. Patient had a low flap transverse done. After delivery, was intubated and transferred to [facility] in NICU. During post op, patient was started on IV Ancef & Gentamicin. She was noted to have sinus tachycardia and transferred to telemetry where a ECHO was done, which revealed tricuspid regurgitation and pulmonary hypertension. Patient was treated and discharged on 04/13 with PO Augmentin 875 mg BID x7 days. Allergies: NKDA Social History: No alcohol, tobacco, or drug use reported. Past Surgical History: (04/09/17) PCP: Dr. Flaco Wong CERTIFIED PHLEBOTOMY TECHNICIAN: Dr. Gabriella Smith <Chloe Milligan - Last Filed: 04/17/17 23:26> - General Chief Complaint: Revisit,Wound Recheck Stated Complaint: POST OP Time Seen by Provider: 04/17/17 22:47 Past History - Past Medical History Asthma: No Cancer: No Cardiac Disorders: No Diabetes: No HTN: No Seizures: No Thyroid Disease: No - Reproductive History (#): 0 Para: 0 - Psycho/Social/Smoking Cessation Hx Anxiety: No Suicidal Ideation: No Smoking History: Never smoked Have you smoked in the past 12 months: No Number of Cigarettes Smoked Daily: 0 Information on smoking cessation initiated: No Hx Alcohol Use: No Drug/Substance Use Hx: No Substance Use Type: None Hx Substance Use Treatment: No <Edward Santana - Last Filed: 04/17/17 23:11> <Chloe Milligan - Last Filed: 04/17/17 23:26> - Past Medical History Allergies/Adverse Reactions: Allergies Allergy/AdvReac Type Severity Reaction Status Date / Time No Known Allergies Allergy Verified 04/09/17 06:29 Home Medications: Ambulatory Orders Acetaminophen [Tylenol .Regular Strength -] 500 mg PO Q4H PRN #30 tablet Amox-Tr/K Cl [Augmentin 875-125mg Tablet -] 1 tab PO BID@0800,1730 #14 tablet Calamine 8% Topical Lotion - 1 applic TP QID bottle 04/13/17 Ferrous Sulfate [Feosol] 325 mg PO BID #60 tab 04/13/17 Ibuprofen [Motrin -] 600 mg PO Q4H PRN #30 tablet 04/13/17 Vitamins (Sjr) - 1 tab PO DAILY #30 tablet 04/13/17 Sulfamethoxazole/Trimethoprim [Bactrim Ds -] 1 tab PO BID #20 tablet 04/17/17 Review of Systems - Review of Systems Able to Perform ROS?: Yes Comments:: 04/17/17 23:24 CONSTITUTIONAL: Absent: fever, no chills, no fatigue EYES: Absent: visual changes ENT: Absent: ear pain, no sore throat CARDIOVASCULAR: Absent: chest pain, no palpitations RESPIRATORY: Absent: cough, no SOB GI: Absent: abdominal pain, no nausea, no vomiting, no constipation, no diarrhea GENITOURINARY: Absent: dysuria, no frequency, no hematuria MUSCULOSKELETAL: Absent: back pain, no arthralgia, no myalgia SKIN: +redness, pain, and yellow discharge from surgical wound Absent: rash NEURO: Absent: headache <Chloe Milligan - Last Filed: 04/17/17 23:26> *Physical Exam - Vital Signs Last Vital Signs Temp Pulse Resp BP Pulse Ox 98.2 F 87 18 151/83 100 04/17/17 22:10 04/17/17 22:10 04/17/17 22:10 04/17/17 22:10 04/17/17 22:10 <Edward Santana - Last Filed: 04/17/17 23:11> - Vital Signs Last Vital Signs Temp Pulse Resp BP Pulse Ox 98.2 F 87 18 151/83 100 04/17/17 22:10 04/17/17 22:10 04/17/17 22:10 04/17/17 22:10 04/17/17 22:10 - Physical Exam Comments: 04/17/17 23:24 GENERAL: Well-appearing, well-nourished. No apparent distress. HEENT: Normocephalic, atraumatic. PERRL, EOM intact. CARDIOVASCULAR: Normal S1, S2. Regular rate and rhythm. PULMONARY: Clear to auscultation bilaterally. ABDOMEN: Soft, non-distended, non-tender. Far right side of the incision there is some mucopurulent drainage. No redness, induration, or real tenderness. Sterostirps all still intact, no dishense of the surgical wound. EXTREMITIES: Normal ROM in all four extremities. No gross deformities. SKIN: Warm, dry. No rash NEUROLOGICAL: No focal neurological deficits. <Chloe Milligan - Last Filed: 04/17/17 23:26> Medical Decision Making - Medical Decision Making 04/17/17 23:12 ALready on Amoxicillin .intrauterine culture did grow bacteria but was sensitive to all including bactrim. Discharged from Hospital Friday and just noticed the drainage tonight. Wound is not dehissed and there is no redness or induration. <Edward Santana - Last Filed: 04/17/17 23:11> *DC/Admit/Observation/Transfer - Attestations Physician Attestion: 04/17/17 22:49 I, Dr. Edward Santana, attest that this document has been prepared under my direction and personally reviewed by me in its entirety. I further attest, that it accurately reflects all work, treatment, procedures and medical decision -making performed by me. <Edward Santana - Last Filed: 04/17/17 23:11> - Attestations Scribe Attestion: 04/17/17 23:24 Documentation prepared by Chole Milligan, acting as medical device for Edward Santana MD/. <Chloe Milligan - Last Filed: 04/17/17 23:26> Diagnosis at time of Disposition: Wound infection after surgery Qualifiers: Encounter type: initial encounter Qualified Code(s): T81.4XXA - Infection following a procedure, initial encounter - Discharge Dispostion Disposition: HOME Condition at time of disposition: Good - Prescriptions Prescriptions: Sulfamethoxazole/Trimethoprim [Bactrim Ds -] 1 tab PO BID #20 tablet - Referrals Referrals: Flaco Wong [Primary Care Provider] - Gabriella Smith MD [Staff Physician] - - Patient Instructions Printed Discharge Instructions: How to Care for a Surgical Wound Additional Instructions: Dont give the milk to the baby unless the doctors in the hospital say it is ok with you taking the Bactrim DS. See Dr. Smith no later than Friday. Return to us if any problems. Hope this all works out for you soon..... Best- Dr. Edward Santana
[2017-04-17] MEDS ORDERED: SULFAMETHOXAZOLE/TRIMETHOPRIM 800MG/160MG D.S. TABLET PO ONE (23:09)
[2017-04-17] MEDS ORDERED: SULFAMETHOXAZOLE/TRIMETHOPRIM 800MG/160MG D.S. TABLET ONE (23:42)
== END 2017-04-17 23:54 | disposition home or self-care (01) ==
LOC: SUPCPDRO 21:58 → JER 21:58
DX: O86.0 Infection of obstetric surgical wound (principal)
CPT/HCPCS: 99281-25